=== PATIENT | male | born 1955 | race Caucasian/White ===

== ENCOUNTER 2020-03-27 10:00 | Emergency (ER) | payer MEDICARE, OTHER, SELFPAY ==
--- NOTE | 2020-03-27 10:39 | DI.RAD.S_ITS ---
PROCEDURE: XR RIBS RT MIN 3V W CXR 1V INDICATIONS: possible broken rib TECHNIQUE: 2 views of the right ribs were acquired, along with a single view chest. COMPARISON: None. FINDINGS: Surgical changes and devices: None. Bones and chest wall: Nondisplaced right ninth rib fracture is present. No suspicious bony lesions. Overlying soft tissues appear unremarkable. Lungs and pleura: No pleural effusions or pneumothorax. Lungs appear clear. Mediastinum: Mediastinal contours appear normal. Heart size is normal. IMPRESSION: Nondisplaced right ninth rib fracture. Dictated by: Mode Villalobos M.D. on 03/27/2020 at 12:05 Approved by: Mode Villalobos M.D. on 03/27/2020 at 12:11
[2020-03-27 10:40] VITALS: BP 177/95; PULSE 82; RESP 16; TEMP 36.7; O2SAT 96
[2020-03-27 13:54] VITALS: BP 167/104; PULSE 81; RESP 18; O2SAT 98
--- NOTE | 2020-03-27 14:11 | ED.BACK ---
HPI - Back Pain/Injury <KLAUDIA Spring - Last Filed: 03/27/20 14:15> General Chief Complaint: Back Pain/Injury Stated Complaint: Broke a rib, I think. Right side, hurts in front Time Seen by Provider: 03/27/20 12:52 Source: patient Mode of arrival: Ambulatory Limitations: no limitations History of Present Illness HPI Narrative: The patient is a 65-year-old male nonsmoker who denies pertinent medical history presents with a chief complaint of ?I think I broke a rib.He fell against a car 3 days ago and felt a crack. He states he is becoming increasingly painful. He denies any shortness of breath, but states it hurts to sleep and take a deep breath. He denies any abdominal pain nausea vomiting or diarrhea. He denies any other injuries from this fall into a car. Related Data Previous Rx's Medication Instructions Recorded hydrocodone-acetaminophen [[place]] 1 tab PO Q4-6H PRN #7 tab 03/27/20 Allergies Allergy/AdvReac Type Severity Reaction Status Date / Time codeine Allergy Intermediate Verified 03/23/18 08:28 cat dander Allergy Mild Verified 03/23/18 08:28 Review of Systems <ERICKA Spring - Last Filed: 03/27/20 14:15> Review of Systems Narrative: GENERAL: Denies chills, fatigue, malaise, fever, sweats. HEENT: Denies sinus pain, ear pain, sore throat, difficulty swallowing, dizziness. RESPIRATORY: See HPI CARDIOVASCULAR: Denies chest pain, palpitations, orthopnea, edema, GASTROINTESTINAL: Denies nausea, vomiting, abdominal pain, diarrhea, constipation, melena. : Denies dysuria, frequency, incontinence, hematuria, urinary retention. MUSCULOSKELETAL: denies weakness, joint pain, or bony pain SKIN: Denies rash, skin lesions, or other NEUROLOGIC: Denies weakness, headache, numbness, change in speech, confusion, seizures, incoordination. PSYCHIATRIC: No concerning psychosocial issues. 12 point review of systems is negative except for those stated above Patient History <KLAUDIA Spring - Last Filed: 03/27/20 14:15> Social History Smoking Status: Former smoker Smoking Status: Former smoker alcohol intake frequency: 0-2 drinks per day Substance Use Type: does not use Exam <KARELY Spring-BC - Last Filed: 03/27/20 14:15> Narrative Exam Narrative: GENERAL: This is a well-nourished, well-developed patient, in no acute distress HEAD: Atraumatic. Normocephalic. No temporal or scalp tenderness. EYES: Pupils equal round and reactive. Extraocular motions intact. No scleral icterus. No injection or drainage. ENT: Nose without bleeding, purulent drainage or septal hematoma. Throat without erythema, tonsillar hypertrophy or exudate. Uvula midline. Airway patent. NECK: Trachea midline. No JVD or lymphadenopathy. Supple, nontender, no meningeal signs. CARDIOVASCULAR: Regular rate and rhythm RESPIRATORY: Clear to auscultation. Breath sounds equal bilaterally. No wheezes, rales, or rhonchi. Pain to palpation left side lower chest wall. Pain to anterior posterior chest wall compression as well as lateral chest wall compression. GASTROINTESTINAL: Abdomen soft, non-tender, nondistended. No hepato-splenomegaly, or palpable masses. No guarding. Active bowel sounds all 4 quadrants. EXTREMITIES: No clubbing, cyanosis, or edema. No joint tenderness, effusion, or edema noted. BACK: Nontender without deformity or crepitance. No flank tenderness. NEURO: AOx3. SKIN: No rash or erythema on visible skin. No erythema ecchymosis laceration or abrasion noted on right side of chest wall. Initial Vital Signs Initial Vital Signs: Vital Signs Temperature 98.1 F 03/27/20 10:40 Pulse Rate 82 03/27/20 10:40 Respiratory Rate 16 03/27/20 10:40 Blood Pressure 177/95 H 03/27/20 10:40 Pulse Oximetry 96 03/27/20 10:40 <Viviana Dior DO - Last Filed: 03/30/20 07:49> Initial Vital Signs Initial Vital Signs: Vital Signs Temperature 98.1 F 03/27/20 10:40 Pulse Rate 82 03/27/20 10:40 Respiratory Rate 16 03/27/20 10:40 Blood Pressure 177/95 H 03/27/20 10:40 Pulse Oximetry 96 03/27/20 10:40 Scores <KARELY Spring-BC - Last Filed: 03/27/20 14:15> GCS [place] coma scale eye opening: Spontaneous [place] coma scale verbal response: Orientated [place] coma scale motor response: Obey commands [place] coma scale total score: 15 Course <KLAUDIA Spring - Last Filed: 03/27/20 14:15> Orders Ordered: ED Orders 03/27/20 10:39 XR ribs RT min 3V w CXR1V Stat Vital Signs Vital signs: Vital Signs - 8 hr 03/27/20 10:40 03/27/20 13:54 Temperature 98.1 F Pulse Rate 82 81 Respiratory Rate 16 18 Blood Pressure 177/95 H 167/104 H Pulse Oximetry 96 98 <Viviana Dior DO - Last Filed: 03/30/20 07:49> Orders Ordered: ED Orders 03/27/20 10:39 XR ribs RT min 3V w CXR1V Stat Vital Signs Vital signs: Vital Signs - 8 hr 03/27/20 10:40 03/27/20 13:54 Temperature 98.1 F Pulse Rate 82 81 Respiratory Rate 16 18 Blood Pressure 177/95 H 167/104 H Pulse Oximetry 96 98 MDM - Back Pain/Injury <KLAUDIA Spring - Last Filed: 03/27/20 14:15> Imaging Data Rib x-ray: Radiologist's Impression: [address] [place] [id number] XRay Report Signed Patient: Spenser Arteaga CMR#: [id number] : 3Acct:[id number] Age/Sex: 65 / MDate of Service: 03/27/20 Loc: ED Accession Number: [id number] Procedure: XR ribs RT min 3V w CXR1V Ordering Provider: Viviana Dior D.O. PROCEDURE: XR RIBS RT MIN 3V W CXR 1V INDICATIONS: possible broken rib TECHNIQUE: 2 views of the right ribs were acquired, along with a single view chest. COMPARISON: None. FINDINGS: Surgical changes and devices: None. Bones and chest wall: Nondisplaced right ninth rib fracture is present. No suspicious bony lesions. Overlying soft tissues appear unremarkable. Lungs and pleura: No pleural effusions or pneumothorax. Lungs appear clear. Mediastinum: Mediastinal contours appear normal. Heart size is normal. IMPRESSION: Nondisplaced right ninth rib fracture. Dictated by: Mode Villalobos M.D. on 03/27/2020 at 12:05 Approved by: Mode Villalobos M.D. on 03/27/2020 at 12:11 [facility] Narrative Medical decision making narrative: The patient is a 65-year-old male nonsmoker with history of a fall into a car. He presents with a chief complaint of right pain thinking cracked rib. X-ray correlates with a nondisplaced 9th rib fracture on his right side. He has no abdominal pain lightheadedness or dizziness. He received incentive spirometry teaching as well as teaching regarding a rib fracture in the emergency department. I did give him a prescription of Sherwood for pain as he states he has taken it before and had no negative reactions. I discussed at length following up with primary care provider coming back to the emergency department for any acute concerns. Patient has no questions or concerns upon discharge and states understanding of return precautions as well as follow-up care. Discharge Plan Departure Patient Disposition: Home Clinical Impression: Right rib fracture Qualifiers: Encounter type: initial encounter Rib fracture type: single rib Fracture type: closed Qualified Code(s): S22.31XA - Fracture of one rib, right side, initial encounter for closed fracture Discharge Date/Time: 03/27/20 13:30 Instructions: How to Use an Incentive Spirometer, DI for Rib Fracture Activity Restrictions/Additional Instructions: Thank you for trusting us with your care today. You have a nondisplaced right rib fracture. I have sent a prescription of hydrocodone with Tylenol to [facility] I have given you a prescription of a narcotic for pain. Be aware that this can be constipating and sedating. I encouraged taking with a stool softener, pushing fluids and fiber. Do not take and drive, operate heavy machinery, etc. Do not combine it with any other sedating substances such as alcohol. The combination of narcotics and alcohol and/or other sedatives can be lethal. Please be sure to use the incentive spirometer to help prevent pneumonia. Follow-up with primary care provider in the next few days. Please come back to emergency department for any acute concerns Prescriptions: New hydrocodone-acetaminophen [[place]wood] 5-325 mg tablet 1 tab PO Q4-6H PRN (Reason: pain) Qty: 7 RF: 0 Referrals: Antonino Vela DO [Primary Care Provider] - <Viviana Dior DO - Last Filed: 03/30/20 07:49> Cosign ED Attending Cosignature Attestation: I was immediately available in the department for consultation. Documentation has been reviewed. I agree with assessment and plan.
== END 2020-03-27 13:30 | disposition home or self-care (01) ==
PROVIDERS: Emergency Provider Nurse Practitioner Family; PCP Family Medicine
DX: S22.31XA Fracture of one rib, right side, initial encounter for closed fracture (principal); W18.09XA Striking against other object with subsequent fall, initial encounter
CPT/HCPCS: 71101; 99283

== ENCOUNTER → 2021-01-22 09:22 | Outpatient (CLI) | payer MEDICARE, OTHER, SELFPAY ==
[2021-01-22 10:54] LABS: COVID19 -Nasal RAPID Negative (Negative)
== END ==
PROVIDERS: PCP Family Medicine; Visit Provider Specialist
DX: Z20.822 Contact with and (suspected) exposure to COVID-19 (principal)
CPT/HCPCS: 87635; C9803

== ENCOUNTER → 2021-03-26 09:59 | Outpatient (CLI) | payer MEDICARE, OTHER, SELFPAY ==
[2021-03-26 10:38] LABS: COVID19 -Nasal RAPID Negative (Negative)
== END ==
PROVIDERS: PCP Family Medicine; Visit Provider Specialist
DX: Z20.822 Contact with and (suspected) exposure to COVID-19 (principal)
CPT/HCPCS: 87635; C9803

== ENCOUNTER 2021-03-27 06:35 | Day surgery (SDC) | payer MEDICARE, OTHER, SELFPAY ==
--- NOTE | 2021-03-27 | PATH_ITS ---
[facility] Accession Number: [id number] . 01 Material submitted: . colon - 30CM COLON POLYP . 02 Diagnosis: Colon, Polyp 30 cm, Biopsy: Tubular adenoma. MRV 04/01/2021 1354 Local . 02 Electronically signed: . Shania Peter MD, Pathologist NPI- [id number] . 01 Gross description: . 30CM COLON POLYP: Received in formalin is 1 fragment(s) of gallagher, soft tissue measuring 0.5 x 0.4 x 0.2 cm submitted entirely in 1 cassette(s) /MARIA L 03/28/2021 0651 Local . 02 Pathologist provided ICD-10: D12.6 . 02 CPT . 014051 Performed at: 01 [facility] [address] [place] [address], [place], [place] [id number] MD Ant Caruso MD Phone: [phone] Performed at: [address] [facility] [address] [place], [place] [id number] MD Shania Peter MD Phone: [phone]
[2021-03-27 07:07] VITALS: BMI 12.0
[2021-03-27 07:22] VITALS: BP 146/90; PULSE 81; RESP 16; TEMP 36.7; O2SAT 98
[2021-03-27] MEDS: LACTATED RINGERS 1,000 ML 200 ML IV (07:24)
--- NOTE | 2021-03-27 07:50 | PM.HP.1 ---
History of Present Illness History of Present Illness Date Patient Seen: 03/27/21 Time Patient Seen: 07:41 Chief complaint: DX COLONOSCOPY Narrative: Patient is a gentleman here for screening colonoscopy. Last exam was 10 years ago. He has been having a lot of diarrhea earlier in the year. Patient History Family & Social History Family History Grandfather Heart disease Social History: household members spouse Tobacco & Substance use: Smoking Status Former smoker alcohol intake current alcohol intake frequency 0-2 drinks per day Substance Use Type does not use Meds Home Medications and Allergies Home Medications Medication Instructions Recorded Confirmed Type multivitamin 1 tab PO DAILY 12/18/20 03/27/21 History Allergies Allergy/AdvReac Type Severity Reaction Status Date / Time codeine Allergy Intermediate Verified 03/27/21 07:06 cat dander Allergy Mild Verified 03/27/21 07:06 Review of Systems Review of Systems ROS: Yes All systems reviewed with the patient and are negative except as otherwise documented Exam Vital Signs (past 8 hours): - 03/27/21 07:22 Temperature 98.1 F Pulse Rate 81 Respiratory Rate 16 Blood Pressure 146/90 H Pulse Oximetry 98 Oxygen Delivery Method Room Air Narrative Exam Narrative: Pleasant cooperative patient no apparent distress. Lungs are clear to auscultation. No rales or rhonchi. Heart regular rate and rhythm no murmur gallop. Abdomen is soft nontender without mass. No obvious hernias. Patient is alert and oriented x3. Assessment & Plan Assessment & Plan narrative: The patient for a screening colonoscopy. I have discussed the procedure with them. Risks of bleeding, perforation which would necessitate major operation, failure to find remove all lesions, the potential tattoo were all discussed. All questions were answered. They wished to proceed.
--- NOTE | 2021-03-27 07:55 | PM.PREOP ---
Pre-operative Note COVID-19 COVID-19 status: Negative Result date/Date tested (Pos, Neg/Pending): 03/26/21 Interval Note History & Physical reviewed/Exam performed by Physician: Yes Changes to H&P: No ASA Class (for procedural sedation): I
[2021-03-27] MEDS: ONDANSETRON 4 MG/2 ML INJ IV (08:06)
[2021-03-27] MEDS: MIDAZOLAM 5 MG/5 ML VIAL IV (08:08)
[2021-03-27] MEDS: fentaNYL 250 MCG/5 ML INJ IV (08:13)
--- NOTE | 2021-03-27 08:33 | PM.OP.ENDO ---
Operative Date/Time/Diagnoses Date of procedure: 03/27/21 Time of procedure: 08:33 Pre-op diagnosis: Screening exam. Last colonoscopy 10 years ago. Patient had been having diarrhea but that has completely resolved. Post-op diagnosis: same (Polyp at 30 cm) Procedure & Clinicians Study performed: Colonoscopy with hot snare polypectomy Same procedure as scheduled: Yes Indications: Screening Surgeon: Kenn Contreras Procedure Notes SCOAP/Timeout: Performed Procedure in detail: The patient was placed in the left lateral decubitus position and underwent IV sedation directed by the surgeon consisting of fentanyl and Versed. Digital exam was unremarkable. Prostate was flat.. The scope was inserted and advanced through the rectum into the sigmoid, descending, transverse, and ascending colon. No lesions were seen. The cecum was reached identified by the ileocecal valve and the appendiceal opening. The scope was gradually brought out. One Polyp was found at 30 cm from the anal verge. This was removed completely with a hot snare.. The scope ultimately was retroflexed in the rectum. The appearance was normal. The scope was removed and the patient tolerated the procedure well. Prep was excellent Scope withdrawal time: 9 minutes (13 total) Sedation minutes: 24 Findings: polyp Specimen(s): other (Polyp at 30 cm from the anal verge) Complications: none Post-procedure Recommendations: Colonscopy in 5 years Follow up: as needed Disposition: PACU
[2021-03-27 08:35] VITALS: BP 121/80; PULSE 83; RESP 14; TEMP 36.6; O2SAT 98
[2021-03-27 08:40] VITALS: BP 142/80; BP 143/83; PULSE 72; PULSE 75; RESP 16; O2SAT 97; O2SAT 98
[2021-03-27 08:45] VITALS: BP 131/85; PULSE 73; RESP 16; O2SAT 96
[2021-03-27 08:52] VITALS: BP 131/85; PULSE 65; RESP 16; O2SAT 96
[2021-03-27 09:10] VITALS: BP 156/92; PULSE 74; RESP 18; TEMP 36.6; O2SAT 98
== END 2021-03-27 09:25 | disposition home or self-care (01) ==
PROVIDERS: PCP Family Medicine; Referring Provider Specialist; Visit Provider Specialist
PROC: 0DJD8ZZ Inspection of Lower Intestinal Tract, Via Natural or Artificial Opening Endoscopic (ICD-10-PCS; CPT 45378; principal; 2021-03-27 07:45)
DX: Z12.11 Encounter for screening for malignant neoplasm of colon (principal); D12.6 Benign neoplasm of colon, unspecified
CPT/HCPCS: 45385; 99152; J2250; J2405; J3010

== ENCOUNTER → 2023-05-07 08:12 | Outpatient (CLI) | payer MEDICARE, OTHER, SELFPAY ==
[2023-05-07 09:18] LABS: Add Manual Diff / Slide Review NO; Basophils Absolute Auto 0 /uL (0-100); Basophils Percent Auto 0.7 % (0-2); Eosinophils Absolute Auto 100 /uL (0-450); Eosinophils Percent Auto 2.4 % (2-4); Hematocrit 42.1 % (41-53); Hemoglobin 14.4 g/dL (13.5-17.5); Lymphocytes Absolute Auto 1800 /uL (1100-4500); Lymphocytes Percent Auto 31.4 % (25-40); Mean Corpuscular HGB Conc 34.3 % (30-36); Mean Corpuscular Hemoglobin 32.3 PG (26-34); Mean Corpuscular Volume 94.2 fL (80-100); Monocytes Absolute Auto 600 /uL (0-900); Monocytes Percent Auto 11.5 % (3-14); Neutrophils Absolute Auto 3000 /uL (1500-7000); Platelet Count 243 X10^3/uL (150-400); Red Blood Cell Count 4.47 X10^6/uL (4.5-5.9); Red Cell Distribution Width 12.6 % (11.6-14.8); White Blood Cell Count 5.6 X10^3/uL (4.5-11.0)
[2023-05-07 09:43] LABS: Alanine Aminotransferase 28 IU/L (<50); Albumin 4.2 g/dL (3.5-5.0); Albumin Globulin Ratio 1.6 (1.0-2.8); Alkaline Phosphatase 84 U/L (38-126); Aspartate Aminotransferase 28 IU/L (17-59); Bilirubin Total 0.6 mg/dL (0.2-1.3); Blood Urea Nitrogen 19 mg/dL (9-20); Calcium 9.4 mg/dL (8.4-10.2); Carbon Dioxide 25 mmol/L (22-32); Chloride 105 mmol/L (98-107); Cholesterol 190 mg/dL (140-199); Estimated Glomerular Filt Rate > 60 mL/min (>60); Globulin 2.6 g/dL (1.7-4.1); Glucose 105 mg/dL (80-110); HDL Cholesterol 49 mg/dL (40-60); HEMOLYSIS < 15 (0-50); LDL Cholesterol Calculated 128 mg/dL (<100); Potassium 4.3 mmol/L (3.4-5.1); Sodium 137 mmol/L (137-145); Total Protein 6.8 g/dL (6.3-8.2); Triglycerides 66 mg/dL (35-150)
[2023-05-07 10:11] LABS: Prostate Specific Antigen 2.29 ng/mL (0.10-4.00)
== END ==
PROVIDERS: PCP Family Medicine; Referring Provider Family Medicine; Visit Provider Family Medicine
DX: Z00.00 Encounter for general adult medical examination without abnormal findings (principal); R35.0 Frequency of micturition; R35.1 Nocturia
CPT/HCPCS: 36415; 80053; 80061; 84153; 85025

== ENCOUNTER → 2023-05-10 09:59 | Outpatient (CLI) | payer MEDICARE, OTHER, SELFPAY ==
--- NOTE | 2023-05-10 10:00 | DI.RAD.S_ITS ---
PROCEDURE: XR SHOULDER LT MIN 2V INDICATIONS: bilateral shoulder pain TECHNIQUE: 3 views of the shoulder were acquired. COMPARISON: None. FINDINGS: Bones: No fractures or dislocations. No suspicious bony lesions. Visualized ribs appear intact. Glenohumeral and acromioclavicular joint space narrowing with associated osteophytosis. Soft tissues: No suspicious soft tissue calcifications. IMPRESSION: Moderate glenohumeral osteoarthritis. Dictated by: Pérez Hilton M.D. on 05/10/2023 at 14:07 Approved by: Pérez Hilton M.D. on 05/10/2023 at 14:07
--- NOTE | 2023-05-10 10:00 | DI.RAD.S_ITS ---
PROCEDURE: XR SHOULDER RT MIN 2V INDICATIONS: bilateral shoulder pain TECHNIQUE: 3 views of the shoulder were acquired. COMPARISON: None. FINDINGS: Bones: No fractures or dislocations. No suspicious bony lesions. Visualized ribs appear intact. Glenohumeral and acromioclavicular joint space narrowing with associated osteophytosis. Soft tissues: No suspicious soft tissue calcifications. IMPRESSION: Moderate glenohumeral osteoarthritis. Dictated by: Pérez Hiltno M.D. on 05/10/2023 at 14:07 Approved by: Pérez Hilton M.D. on 05/10/2023 at 14:07
== END ==
PROVIDERS: PCP Family Medicine; Referring Provider Family Medicine; Visit Provider Family Medicine
DX: M19.011 Primary osteoarthritis, right shoulder (principal); M19.012 Primary osteoarthritis, left shoulder; M25.511 Pain in right shoulder; M25.512 Pain in left shoulder
CPT/HCPCS: 73030

== ENCOUNTER 2023-10-19 08:15 | Outpatient (RCR) | payer MEDICARE, OTHER, SELFPAY ==
--- NOTE | 2023-06-08 10:43 | PT.OIE ---
Current Diagnoses Pain in right shoulder (06/08/23) Pain in left shoulder (06/08/23) Past Medical History (Last Updated 01/13/23 @ 13:23 by Ant George MD) ADD (attention deficit disorder) Bilateral shoulder pain Visit Care Team Role Provider Type Ant George MD Attending Provider Physician Family Provider Primary Care Provider Referring Provider Specialty: Family Practice Address: [address] [place] [address] Email: [email or web address] Initial Evaluation PT-OP-A Visit Information Start: 06/08/23 08:25 Freq: Status: Active Protocol: Document 06/08/23 08:26 AB (Rec: 06/08/23 10:43 AB [id number]) Out-Patient Physical Therapy Visit Information Visit Information Visit Type Initial Evaluation Visit Start Time 08:30 Visit Stop Time 09:20 Total Visit Minutes 50 Visit Number 1 Number of [employer]IST Visits 0 Evaluation Information Evaluation Date 06/08/23 PT-OP-B Current Condition Start: 06/08/23 08:25 Freq: Status: Active Protocol: Document 06/08/23 08:26 AB (Rec: 06/08/23 10:43 AB [id number]) Current Condition History of Current Condition Onset Date Chronic History of Current Condition The pt reports that since COVID, he has been having increasing bilateral shoulder pain (L>R), as well as mobility deficits (L>R). He is able to push through the pain for almost all of his recreational activities, but has trouble getting to sleep and has pain that wakes him up . He reports a 4/10 pain at worst with agg activities ( reaching across his body), 0/ 10 at best. Prior Treatments and Tests Has tried some exercises. Xrays: narrowing space and OA Future Testing and Treatments Planned Will possibly get injections Treatment Goals Patient/Caregiver Goals To return to lifting weights Current Functional Impairments (Reported) Functional Limitations- Recreation/ Participates in hiking, Hobbies kayaking but pushes through the pain. Unable to weight lift currently. PT-OP-C Subjective Start: 06/08/23 08:25 Freq: Status: Active Protocol: Document 06/08/23 08:26 AB (Rec: 06/08/23 10:43 AB [id number]) OP-PT Subjective Patient Comments Patient Comments See hx of current condition Patient Questionnaires Quick Dash- Upper Extremity Quick Dash UE Score 13.63% Quick Dash UE Impairment 1 to 19% Impaired (Score 1-19) PT-OP-J Posture/Palpation/Skin Start: 06/08/23 08:25 Freq: Status: Active Protocol: Document 06/08/23 08:26 AB (Rec: 06/08/23 10:43 AB [id number]) Posture Evaluation Position Sitting Evaluation View Lateral T-Spine Posture Increased Kyphosis PT-OP-K Range of Motion Start: 06/08/23 08:25 Freq: Status: Active Protocol: Document 06/08/23 08:26 AB (Rec: 06/08/23 10:43 AB [id number]) Shoulder Goniometric Range of Motion Shoulder Right Active Shoulder ROM WFL Yes Testing Position Sitting Flexion 118 Abduction 149 External Rotation at 0 degrees Abduction 60 Internal Rotation Behind Back (text) T3 Comments Functional ER: L1 Mild pain (1/10) with all motions, begins to compensate with UT for shoulder flexion and ABD Left Active Shoulder ROM WFL No Testing Position Sitting Flexion 93 Abduction 97 External Rotation at 0 degrees Abduction 42 Internal Rotation Behind Back (text) C5 Comments Functional ER: L4 Pain (4/10) with all motions, begins to compensate with UT for shoulder flexion and ABD PT-OP-M Strength Start: 06/08/23 08:25 Freq: Status: Active Protocol: Document 06/08/23 08:26 AB (Rec: 06/08/23 10:43 AB [id number]) Shoulder Strength Shoulder Manual Muscle Testing Right Flexion 5 Normal Extension 5 Normal Abduction (C5) 4+ Good+ Internal Rotation 4+ Good+ Horizontal Abduction 4+ Good+ Comments Denies pain Left Flexion 5 Normal Extension 5 Normal Abduction (C5) 4+ Good+ External Rotation 4+ Good+ Internal Rotation 4+ Good+ Comments Denies pain Elbow/Forearm Strength Elbow and Forearm Manual Muscle Testing Right Flexion (C6) 5 Normal Extension (C7) 5 Normal Left Flexion (C6) 5 Normal Extension (C7) 5 Normal PT-OP-Q Treatments Start: 06/08/23 08:25 Freq: Status: Active Protocol: Document 06/08/23 08:26 AB (Rec: 06/08/23 10:43 AB [id number]) Therapeutic Exercises Supine Exercises Cane shldr flexion AAROM Side bilateral Equipment Used Cane/dowel Reps/Minutes 3x10 sec hold Standing Exercises IR strap stretch Side bilateral Reps/Minutes 2x10 sec hold ea Cane shldr ER AAROM Side bilateral Reps/Minutes 2x10 sec hold ea Cane shldr ABD AAROM Side bilateral Reps/Minutes 2x10 sec hold ea Comments cues to retract shoulder blades for better GH jt positioning PT-OP-T Assessment and Plan Start: 06/08/23 08:25 Freq: Status: Active Protocol: Document 06/08/23 08:26 AB (Rec: 06/08/23 10:43 AB [id number]) Physical Therapy Assessment Rehab Potential Rehabilitation Potential Good Evaluation Complexity Number of Personal Factors/Comorbidities 1-2 Number of Body Systems Impaired 1-2 Clinical Presentation at Evaluation Stable Impairments Impairments Pain,Posture,ROM,Soft Tissue Mobility,Strength Goals Six Impairment Strength Short Term Goal (STG) Pt's gross BUE MMT scores to improve to 5/5 to show improving strength to improve ability to perform ADLs and IADLs. STG Duration 4 Grades 9 Thru 12 Visiting Teacher Goal (LTG) Pt to report being able to return to weight lifting with minimal to no pain to show improving strength to return to recreational activities. LTG Duration 8 Five Short Term Goal (STG) Pt's left shoulder functional IR AROM to improve to L1 or better and right shoulder functional IR AROM to improve to T10 or better to show improving ROM to improve ability to perform ADLs and IADLs. STG Duration 4 Grades 9 Thru 12 Visiting Teacher Goal (LTG) Pt's left shoulder functional IR AROM to improve to T10 or better and right shoulder functional IR AROM to improve to T8 or better to show improving ROM to improve ability to perform ADLs and IADLs. LTG Duration 8 Four Impairment Shoulder AROM deficits Short Term Goal (STG) Pt's left shoulder functional ER AROM to improve to C7 or better to show improving ROM to improve ability to perform ADLs and IADLs. STG Duration 4 Fdc Goal (LTG) Pt's left shoulder functional ER AROM to improve to T3 or better to show improving ROM to improve ability to perform ADLs and IADLs. LTG Duration 8 Three Impairment Shoulder AROM deficits Short Term Goal (STG) Pt's right shoulder ER AROM to improve to 65 degrees or better and left shoulder ER AROM to improve to 55 degrees or better to show improving ROM to improve ability to perform ADLs and IADLs. STG Duration 4 Grades 9 Thru 12 Visiting Teacher Goal (LTG) Pt's left shoulder ER AROM to improve to 65 degrees or better to show improving ROM to improve ability to perform ADLs and IADLs. LTG Duration 8 Two Impairment Shoulder AROM deficits Short Term Goal (STG) Pt's right shoulder ABD AROM to improve to 160 degrees or better and left shoulder ABD AROM to improve to 110 degrees or better to show improving ROM to improve ability to perform ADLs and IADLs. STG Duration 4 Fdc Goal (LTG) Pt's right shoulder ABD AROM to improve to 170 degrees or better and left shoulder ABD AROM to improve to 130 degrees or better to show improving ROM to improve ability to perform ADLs and IADLs. LTG Duration 8 One Impairment Shoulder AROM deficits Short Term Goal (STG) Pt's right shoulder flexion AROM to improve to 130 degrees or better and left shoulder flexion AROM to improve to 110 degrees or better to show improving ROM to improve ability to perform ADLs and IADLs. STG Duration 4 Grades 9 Thru 12 Visiting Teacher Goal (LTG) Pt's right shoulder flexion AROM to improve to 150 degrees or better and left shoulder flexion AROM to improve to 130 degrees or better to show improving ROM to improve ability to perform ADLs and IADLs. LTG Duration 8 Assessment Summary Assessment Regino Arteaga is a 68 year old male patient who presents to outpatient PT clinic with complaints of chronic bilateral shoulder pain and mobility deficits (L>R) due to OA which has caused narrowing GH and AC joint space. Today' s PT examination revealed bilateral UE AROM deficits (L> R), mild muscular weakness, pain that was reproduced with AROM testing, abnormal UE biomechanics, and postural abnormalities. These are all contributing to the pt's symptom presentation and current impairments. Based on today's findings, the pt would benefit from skilled PT to improve these deficits in order to reduce his symptoms and return to his PLOF, including his recreational activities. The pt's rehab potential is good based on his active lifestyle and motivation to participate in therapy. Physical Therapy Plan Frequency and Duration Frequency of Treatment 2x/Week Duration of treatment (weeks) 8 Plan of Care Start Date 06/08/23 Plan of Care End Date 08/03/23 Therapeutic Interventions Therapeutic Interventions Home Exercise Program,Joint Mobilizations,Manual Therapy, Neuromuscular Re-education, Patient/Caregiver Education, Self-Care/Home Management,Soft Tissue Mobilization,Taping, Therapeutic Activities, Therapeutic Exercises Modalities Cold Pack/Ice Massage,Electric Stimulation,Hot Packs Next Visit Focus/Plan Next Note Type Treatment Note Next Visit Plan Review HEP. Add BUE mobility exercises and low level periscapular and RTC strengthening to improve biomechanics and posture.
--- NOTE | 2023-06-08 10:44 | PT.OPPOC ---
Physical, Occupational & Speech Therapy At [facility] Current Diagnoses Pain in right shoulder (06/08/23) Pain in left shoulder (06/08/23) Visit Care Team Role Provider Type Ant George MD Attending Provider Physician Family Provider Primary Care Provider Referring Provider Specialty: Family Practice Address: [address] [place] [address] Email: [email or web address] Plan Of Care PT-OP-T Assessment and Plan Start: 06/08/23 08:25 Freq: Status: Active Protocol: Document 06/08/23 08:26 AB (Rec: 06/08/23 10:43 AB [id number]) Physical Therapy Assessment Rehab Potential Rehabilitation Potential Good Evaluation Complexity Number of Personal Factors/Comorbidities 1-2 Number of Body Systems Impaired 1-2 Clinical Presentation at Evaluation Stable Impairments Impairments Pain,Posture,ROM,Soft Tissue Mobility,Strength Goals Six Impairment Strength Short Term Goal (STG) Pt's gross BUE MMT scores to improve to 5/5 to show improving strength to improve ability to perform ADLs and IADLs. STG Duration 4 Forms Builder Goal (LTG) Pt to report being able to return to weight lifting with minimal to no pain to show improving strength to return to recreational activities. LTG Duration 8 Five Short Term Goal (STG) Pt's left shoulder functional IR AROM to improve to L1 or better and right shoulder functional IR AROM to improve to T10 or better to show improving ROM to improve ability to perform ADLs and IADLs. STG Duration 4 Residential Goal (LTG) Pt's left shoulder functional IR AROM to improve to T10 or better and right shoulder functional IR AROM to improve to T8 or better to show improving ROM to improve ability to perform ADLs and IADLs. LTG Duration 8 Four Impairment Shoulder AROM deficits Short Term Goal (STG) Pt's left shoulder functional ER AROM to improve to C7 or better to show improving ROM to improve ability to perform ADLs and IADLs. STG Duration 4 Forms Builder Goal (LTG) Pt's left shoulder functional ER AROM to improve to T3 or better to show improving ROM to improve ability to perform ADLs and IADLs. LTG Duration 8 Three Impairment Shoulder AROM deficits Short Term Goal (STG) Pt's right shoulder ER AROM to improve to 65 degrees or better and left shoulder ER AROM to improve to 55 degrees or better to show improving ROM to improve ability to perform ADLs and IADLs. STG Duration 4 Forms Builder Goal (LTG) Pt's left shoulder ER AROM to improve to 65 degrees or better to show improving ROM to improve ability to perform ADLs and IADLs. LTG Duration 8 Two Impairment Shoulder AROM deficits Short Term Goal (STG) Pt's right shoulder ABD AROM to improve to 160 degrees or better and left shoulder ABD AROM to improve to 110 degrees or better to show improving ROM to improve ability to perform ADLs and IADLs. STG Duration 4 Forms Builder Goal (LTG) Pt's right shoulder ABD AROM to improve to 170 degrees or better and left shoulder ABD AROM to improve to 130 degrees or better to show improving ROM to improve ability to perform ADLs and IADLs. LTG Duration 8 One Impairment Shoulder AROM deficits Short Term Goal (STG) Pt's right shoulder flexion AROM to improve to 130 degrees or better and left shoulder flexion AROM to improve to 110 degrees or better to show improving ROM to improve ability to perform ADLs and IADLs. STG Duration 4 Residential Goal (LTG) Pt's right shoulder flexion AROM to improve to 150 degrees or better and left shoulder flexion AROM to improve to 130 degrees or better to show improving ROM to improve ability to perform ADLs and IADLs. LTG Duration 8 Assessment Summary Assessment Regino Arteaga is a 68 year old male patient who presents to outpatient PT clinic with complaints of chronic bilateral shoulder pain and mobility deficits (L>R) due to OA which has caused narrowing GH and AC joint space. Today' s PT examination revealed bilateral UE AROM deficits (L> R), mild muscular weakness, pain that was reproduced with AROM testing, abnormal UE biomechanics, and postural abnormalities. These are all contributing to the pt's symptom presentation and current impairments. Based on today's findings, the pt would benefit from skilled PT to improve these deficits in order to reduce his symptoms and return to his PLOF, including his recreational activities. The pt's rehab potential is good based on his active lifestyle and motivation to participate in therapy. Physical Therapy Plan Frequency and Duration Frequency of Treatment 2x/Week Duration of treatment (weeks) 8 Plan of Care Start Date 06/08/23 Plan of Care End Date 08/03/23 Therapeutic Interventions Therapeutic Interventions Home Exercise Program,Joint Mobilizations,Manual Therapy, Neuromuscular Re-education, Patient/Caregiver Education, Self-Care/Home Management,Soft Tissue Mobilization,Taping, Therapeutic Activities, Therapeutic Exercises Modalities Cold Pack/Ice Massage,Electric Stimulation,Hot Packs Next Visit Focus/Plan Next Note Type Treatment Note Next Visit Plan Review HEP. Add BUE mobility exercises and low level periscapular and RTC strengthening to improve biomechanics and posture. Plan of Care Dates Plan of Care Start Date 06/08/23 Plan of Care End Date 08/03/23 Electronically Signed by: Giorgio Jenkins, PT 06/08/23 1044 If you are in agreement with this Plan of Care, please return a signed and dated copy. I have reviewed this Plan of Care and certify that the skilled therapy services above are required to meet the patient?s needs. Physician Signature Date Printed Name and Credentials Clinical Instructor Signature Printed Name and Credentials
--- NOTE | 2023-06-13 09:48 | PT.OTN ---
Current Diagnoses Pain in right shoulder (06/13/23) Pain in left shoulder (06/13/23) Physical Therapy Treatment Note PT-OP-A Visit Information Start: 06/08/23 08:25 Freq: Status: Active Protocol: Document 06/13/23 08:34 AB (Rec: 06/13/23 09:48 AB [id number]) Out-Patient Physical Therapy Visit Information Visit Information Visit Type Treatment Note Visit Start Time 08:30 Visit Stop Time 09:17 Total Visit Minutes 47 Visit Number 2 Number of REAMING PRESS OPERATOR Visits 0 PT-OP-B Current Condition Start: 06/08/23 08:25 Freq: Status: Active Protocol: Document 06/08/23 08:26 AB (Rec: 06/08/23 10:43 AB [id number]) Current Condition History of Current Condition Onset Date Chronic History of Current Condition The pt reports that since COVID, he has been having increasing bilateral shoulder pain (L>R), as well as mobility deficits (L>R). He is able to push through the pain for almost all of his recreational activities, but has trouble getting to sleep and has pain that wakes him up . He reports a 4/10 pain at worst with agg activities ( reaching across his body), 0/ 10 at best. Prior Treatments and Tests Has tried some exercises. Xrays: narrowing space and OA Future Testing and Treatments Planned Will possibly get injections Treatment Goals Patient/Caregiver Goals To return to lifting weights Current Functional Impairments (Reported) Functional Limitations- Recreation/ Participates in hiking, Hobbies kayaking but pushes through the pain. Unable to weight lift currently. PT-OP-C Subjective Start: 06/08/23 08:25 Freq: Status: Active Protocol: Document 06/13/23 08:34 AB (Rec: 06/13/23 09:48 AB [id number]) OP-PT Subjective Patient Comments Patient Comments The pt reports he was able to perform his HEP once last week due to a busy week, but reported improvement in mobility. Patient Reported Progress Improving PT-OP-J Posture/Palpation/Skin Start: 06/08/23 08:25 Freq: Status: Active Protocol: Document 06/08/23 08:26 AB (Rec: 06/08/23 10:43 AB [id number]) Posture Evaluation Position Sitting Evaluation View Lateral T-Spine Posture Increased Kyphosis PT-OP-K Range of Motion Start: 06/08/23 08:25 Freq: Status: Active Protocol: Document 06/08/23 08:26 AB (Rec: 06/08/23 10:43 AB [id number]) Shoulder Goniometric Range of Motion Shoulder Right Active Shoulder ROM WFL Yes Testing Position Sitting Flexion 118 Abduction 149 External Rotation at 0 degrees Abduction 60 Internal Rotation Behind Back (text) T3 Comments Functional ER: L1 Mild pain (1/10) with all motions, begins to compensate with UT for shoulder flexion and ABD Left Active Shoulder ROM WFL No Testing Position Sitting Flexion 93 Abduction 97 External Rotation at 0 degrees Abduction 42 Internal Rotation Behind Back (text) C5 Comments Functional ER: L4 Pain (4/10) with all motions, begins to compensate with UT for shoulder flexion and ABD PT-OP-M Strength Start: 06/08/23 08:25 Freq: Status: Active Protocol: Document 06/08/23 08:26 AB (Rec: 06/08/23 10:43 AB [id number]) Shoulder Strength Shoulder Manual Muscle Testing Right Flexion 5 Normal Extension 5 Normal Abduction (C5) 4+ Good+ Internal Rotation 4+ Good+ Horizontal Abduction 4+ Good+ Comments Denies pain Left Flexion 5 Normal Extension 5 Normal Abduction (C5) 4+ Good+ External Rotation 4+ Good+ Internal Rotation 4+ Good+ Comments Denies pain Elbow/Forearm Strength Elbow and Forearm Manual Muscle Testing Right Flexion (C6) 5 Normal Extension (C7) 5 Normal Left Flexion (C6) 5 Normal Extension (C7) 5 Normal PT-OP-Q Treatments Start: 06/08/23 08:25 Freq: Status: Active Protocol: Document 06/13/23 08:34 AB (Rec: 06/13/23 09:48 AB [id number]) Cardio Equipment Upper Body Ergometer (UBE) Duration (Minutes) 5 Other 2.5 fwd, 2.5 bwd Therapeutic Exercises Supine Exercises Cane shldr flexion AAROM Side bilateral Equipment Used Cane/dowel Reps/Minutes 10x10 sec hold Sitting Exercises shldr ER Side left Equipment Used Stool, table Reps/Minutes 5x10 sec hold Shldr ABD Side left Equipment Used stool, table Reps/Minutes 5x10 sec hold Shldr flex Side bilateral Equipment Used stool, table Reps/Minutes 5x10 sec hold Standing Exercises IR strap stretch Side bilateral Reps/Minutes 10x10 sec hold ea Cane shldr ER AAROM Side bilateral Reps/Minutes 10x10 sec hold ea Cane shldr ABD AAROM Side bilateral Reps/Minutes 10x10 sec hold ea Comments cues to retract shoulder blades for better GH jt positioning PT-OP-T Assessment and Plan Start: 06/08/23 08:25 Freq: Status: Active Protocol: Document 06/13/23 08:34 AB (Rec: 06/13/23 09:48 AB [id number]) Physical Therapy Assessment Goals Six Impairment Strength Short Term Goal (STG) Pt's gross BUE MMT scores to improve to 5/5 to show improving strength to improve ability to perform ADLs and IADLs. STG Duration 4 Machine Maintenance Goal (LTG) Pt to report being able to return to weight lifting with minimal to no pain to show improving strength to return to recreational activities. LTG Duration 8 Five Short Term Goal (STG) Pt's left shoulder functional IR AROM to improve to L1 or better and right shoulder functional IR AROM to improve to T10 or better to show improving ROM to improve ability to perform ADLs and IADLs. STG Duration 4 Machine Maintenance Goal (LTG) Pt's left shoulder functional IR AROM to improve to T10 or better and right shoulder functional IR AROM to improve to T8 or better to show improving ROM to improve ability to perform ADLs and IADLs. LTG Duration 8 Four Impairment Shoulder AROM deficits Short Term Goal (STG) Pt's left shoulder functional ER AROM to improve to C7 or better to show improving ROM to improve ability to perform ADLs and IADLs. STG Duration 4 Machine Maintenance Goal (LTG) Pt's left shoulder functional ER AROM to improve to T3 or better to show improving ROM to improve ability to perform ADLs and IADLs. LTG Duration 8 Three Impairment Shoulder AROM deficits Short Term Goal (STG) Pt's right shoulder ER AROM to improve to 65 degrees or better and left shoulder ER AROM to improve to 55 degrees or better to show improving ROM to improve ability to perform ADLs and IADLs. STG Duration 4 Detention Goal (LTG) Pt's left shoulder ER AROM to improve to 65 degrees or better to show improving ROM to improve ability to perform ADLs and IADLs. LTG Duration 8 Two Impairment Shoulder AROM deficits Short Term Goal (STG) Pt's right shoulder ABD AROM to improve to 160 degrees or better and left shoulder ABD AROM to improve to 110 degrees or better to show improving ROM to improve ability to perform ADLs and IADLs. STG Duration 4 Detention Goal (LTG) Pt's right shoulder ABD AROM to improve to 170 degrees or better and left shoulder ABD AROM to improve to 130 degrees or better to show improving ROM to improve ability to perform ADLs and IADLs. LTG Duration 8 One Impairment Shoulder AROM deficits Short Term Goal (STG) Pt's right shoulder flexion AROM to improve to 130 degrees or better and left shoulder flexion AROM to improve to 110 degrees or better to show improving ROM to improve ability to perform ADLs and IADLs. STG Duration 4 Detention Goal (LTG) Pt's right shoulder flexion AROM to improve to 150 degrees or better and left shoulder flexion AROM to improve to 130 degrees or better to show improving ROM to improve ability to perform ADLs and IADLs. LTG Duration 8 Assessment Summary Assessment The pt demonstrates good recall of HEP, but continues to require verbal cues for scapular retraction in order to improve GH and scapulothoracic mechanics with UE elevation. Additional table slides were added in order to improve the pt's shoulder AROM deficits, however his is limited by his significant thoracic kyphosis. Therefore, thoracic mobility exercises should be added to improve the pt's symptoms. Physical Therapy Plan Frequency and Duration Frequency of Treatment 2x/Week Duration of treatment (weeks) 8 Plan of Care Start Date 06/08/23 Plan of Care End Date 08/03/23 Therapeutic Interventions Therapeutic Interventions Home Exercise Program,Joint Mobilizations,Manual Therapy, Neuromuscular Re-education, Patient/Caregiver Education, Self-Care/Home Management,Soft Tissue Mobilization,Taping, Therapeutic Activities, Therapeutic Exercises Modalities Cold Pack/Ice Massage,Electric Stimulation,Hot Packs Next Visit Focus/Plan Next Note Type Treatment Note Next Visit Plan Add thoracic and BUE mobility exercises and low level periscapular and RTC strengthening to improve biomechanics and posture.
--- NOTE | 2023-06-16 10:51 | PT.OTN ---
Current Diagnoses Pain in right shoulder (06/16/23) Pain in left shoulder (06/16/23) Physical Therapy Treatment Note PT-OP-A Visit Information Start: 06/08/23 08:25 Freq: Status: Active Protocol: Document 06/16/23 09:10 SW (Rec: 06/16/23 10:50 SW [id number]) Out-Patient Physical Therapy Visit Information Visit Information Visit Type Treatment Note Visit Start Time 09:15 Visit Stop Time 10:00 Total Visit Minutes 45 Visit Number 3 Number of CONSERVATION COORDINATOR Visits 1 PT-OP-B Current Condition Start: 06/08/23 08:25 Freq: Status: Active Protocol: Document 06/08/23 08:26 AB (Rec: 06/08/23 10:43 AB [id number]) Current Condition History of Current Condition Onset Date Chronic History of Current Condition The pt reports that since COVID, he has been having increasing bilateral shoulder pain (L>R), as well as mobility deficits (L>R). He is able to push through the pain for almost all of his recreational activities, but has trouble getting to sleep and has pain that wakes him up . He reports a 4/10 pain at worst with agg activities ( reaching across his body), 0/ 10 at best. Prior Treatments and Tests Has tried some exercises. Xrays: narrowing space and OA Future Testing and Treatments Planned Will possibly get injections Treatment Goals Patient/Caregiver Goals To return to lifting weights Current Functional Impairments (Reported) Functional Limitations- Recreation/ Participates in hiking, Hobbies kayaking but pushes through the pain. Unable to weight lift currently. PT-OP-C Subjective Start: 06/08/23 08:25 Freq: Status: Active Protocol: Document 06/16/23 09:10 SW (Rec: 06/16/23 10:50 [id number]) OP-PT Subjective Patient Comments Patient Comments Pt reports pain with HEP exercises, has questions for PT. Concerned about bone spurs . PT-OP-J Posture/Palpation/Skin Start: 06/08/23 08:25 Freq: Status: Active Protocol: Document 06/08/23 08:26 AB (Rec: 06/08/23 10:43 AB [id number]) Posture Evaluation Position Sitting Evaluation View Lateral T-Spine Posture Increased Kyphosis PT-OP-K Range of Motion Start: 09/06/23 08:25 Freq: Status: Active Protocol: Document 06/08/23 08:26 AB (Rec: 06/08/23 10:43 AB [id number]) Shoulder Goniometric Range of Motion Shoulder Right Active Shoulder ROM WFL Yes Testing Position Sitting Flexion 118 Abduction 149 External Rotation at 0 degrees Abduction 60 Internal Rotation Behind Back (text) T3 Comments Functional ER: L1 Mild pain (1/10) with all motions, begins to compensate with UT for shoulder flexion and ABD Left Active Shoulder ROM WFL No Testing Position Sitting Flexion 93 Abduction 97 External Rotation at 0 degrees Abduction 42 Internal Rotation Behind Back (text) C5 Comments Functional ER: L4 Pain (4/10) with all motions, begins to compensate with UT for shoulder flexion and ABD PT-OP-M Strength Start: 06/08/23 08:25 Freq: Status: Active Protocol: Document 06/08/23 08:26 AB (Rec: 06/08/23 10:43 AB [id number]) Shoulder Strength Shoulder Manual Muscle Testing Right Flexion 5 Normal Extension 5 Normal Abduction (C5) 4+ Good+ Internal Rotation 4+ Good+ Horizontal Abduction 4+ Good+ Comments Denies pain Left Flexion 5 Normal Extension 5 Normal Abduction (C5) 4+ Good+ External Rotation 4+ Good+ Internal Rotation 4+ Good+ Comments Denies pain Elbow/Forearm Strength Elbow and Forearm Manual Muscle Testing Right Flexion (C6) 5 Normal Extension (C7) 5 Normal Left Flexion (C6) 5 Normal Extension (C7) 5 Normal PT-OP-Q Treatments Start: 06/08/23 08:25 Freq: Status: Active Protocol: Document 06/16/23 09:10 SW (Rec: 06/16/23 10:50 SW [id number]) Cardio Equipment Upper Body Ergometer (UBE) Duration (Minutes) 5 Other 2.5 fwd, 2.5 bwd Therapeutic Exercises Sitting Exercises IR Sitting Exercise Name Shoulder IR Isometric>RROM Side bilateral Resistance [place] TB ER Sitting Exercise Name Shoulder ER Isometric>pull aparts Side bilateral Resistance [place] TB Rows Resistance Deuel TB Reps/Minutes 3 x 10 Scapular Retraction Side bilateral Reps/Minutes 10 x 3 hold Standing Exercises Cane shldr ER AAROM Side bilateral Reps/Minutes 10x10 sec hold ea Cane shldr ABD AAROM Side bilateral Reps/Minutes 10x10 sec hold ea Comments cues to retract shoulder blades for better GH jt positioning Manual Therapy Treatment Soft Tissue Mobilization L Shoulder Body Location [place], UT, LS, SCM, periscapular Mobilization Type Myofascial Release,Rolling, Sustained Pressure,Trigger Point Release Intensity/Depth Moderate Body Position Supine Comments Deep Prep Cream Self-Care/Home Management Treatment Education Patient Education Home Exercise Program,Pain Management,Posture PT-OP-T Assessment and Plan Start: 06/08/23 08:25 Freq: Status: Active Protocol: Document 06/16/23 09:10 SW (Rec: 06/16/23 10:50 [id number]) Physical Therapy Assessment Goals Six Impairment Strength Short Term Goal (STG) Pt's gross BUE MMT scores to improve to 5/5 to show improving strength to improve ability to perform ADLs and IADLs. STG Duration 4 Freezer Tunnel Operator Goal (LTG) Pt to report being able to return to weight lifting with minimal to no pain to show improving strength to return to recreational activities. LTG Duration 8 Five Short Term Goal (STG) Pt's left shoulder functional IR AROM to improve to L1 or better and right shoulder functional IR AROM to improve to T10 or better to show improving ROM to improve ability to perform ADLs and IADLs. STG Duration 4 Freezer Tunnel Operator Goal (LTG) Pt's left shoulder functional IR AROM to improve to T10 or better and right shoulder functional IR AROM to improve to T8 or better to show improving ROM to improve ability to perform ADLs and IADLs. LTG Duration 8 Four Impairment Shoulder AROM deficits Short Term Goal (STG) Pt's left shoulder functional ER AROM to improve to C7 or better to show improving ROM to improve ability to perform ADLs and IADLs. STG Duration 4 Freezer Tunnel Operator Goal (LTG) Pt's left shoulder functional ER AROM to improve to T3 or better to show improving ROM to improve ability to perform ADLs and IADLs. LTG Duration 8 Three Impairment Shoulder AROM deficits Short Term Goal (STG) Pt's right shoulder ER AROM to improve to 65 degrees or better and left shoulder ER AROM to improve to 55 degrees or better to show improving ROM to improve ability to perform ADLs and IADLs. STG Duration 4 Penitentiary Goal (LTG) Pt's left shoulder ER AROM to improve to 65 degrees or better to show improving ROM to improve ability to perform ADLs and IADLs. LTG Duration 8 Two Impairment Shoulder AROM deficits Short Term Goal (STG) Pt's right shoulder ABD AROM to improve to 160 degrees or better and left shoulder ABD AROM to improve to 110 degrees or better to show improving ROM to improve ability to perform ADLs and IADLs. STG Duration 4 Penitentiary Goal (LTG) Pt's right shoulder ABD AROM to improve to 170 degrees or better and left shoulder ABD AROM to improve to 130 degrees or better to show improving ROM to improve ability to perform ADLs and IADLs. LTG Duration 8 One Impairment Shoulder AROM deficits Short Term Goal (STG) Pt's right shoulder flexion AROM to improve to 130 degrees or better and left shoulder flexion AROM to improve to 110 degrees or better to show improving ROM to improve ability to perform ADLs and IADLs. STG Duration 4 Penitentiary Goal (LTG) Pt's right shoulder flexion AROM to improve to 150 degrees or better and left shoulder flexion AROM to improve to 130 degrees or better to show improving ROM to improve ability to perform ADLs and IADLs. LTG Duration 8 Assessment Summary Assessment Progressed patient with addition of strength exercises to address postural shoulder muscles. Educated patient on anatomy and mechanics of the shoulder. Pateint concerned with catching and his bone spurs, educated patient not to push into pain with exercises . Physical Therapy Plan Frequency and Duration Frequency of Treatment 2x/Week Duration of treatment (weeks) 8 Plan of Care Start Date 06/08/23 Plan of Care End Date 08/03/23 Therapeutic Interventions Therapeutic Interventions Home Exercise Program,Joint Mobilizations,Manual Therapy, Neuromuscular Re-education, Patient/Caregiver Education, Self-Care/Home Management,Soft Tissue Mobilization,Taping, Therapeutic Activities, Therapeutic Exercises Modalities Cold Pack/Ice Massage,Electric Stimulation,Hot Packs Next Visit Focus/Plan Next Note Type Treatment Note Next Visit Plan Add thoracic and BUE mobility exercises and low level periscapular and RTC strengthening to improve biomechanics and posture.
--- NOTE | 2023-06-20 10:15 | PT.OTN ---
Current Diagnoses Pain in right shoulder (06/20/23) Pain in left shoulder (06/20/23) Physical Therapy Treatment Note PT-OP-A Visit Information Start: 06/08/23 08:25 Freq: Status: Active Protocol: Document 06/20/23 08:36 AB (Rec: 06/20/23 10:14 AB [id number]) Out-Patient Physical Therapy Visit Information Visit Information Visit Type Treatment Note Visit Start Time 08:30 Visit Stop Time 09:18 Total Visit Minutes 48 Visit Number 4 Number of GROCERY STORE MANAGER Visits 1 PT-OP-B Current Condition Start: 06/08/23 08:25 Freq: Status: Active Protocol: Document 06/08/23 08:26 AB (Rec: 06/08/23 10:43 AB [id number]) Current Condition History of Current Condition Onset Date Chronic History of Current Condition The pt reports that since COVID, he has been having increasing bilateral shoulder pain (L>R), as well as mobility deficits (L>R). He is able to push through the pain for almost all of his recreational activities, but has trouble getting to sleep and has pain that wakes him up . He reports a 4/10 pain at worst with agg activities ( reaching across his body), 0/ 10 at best. Prior Treatments and Tests Has tried some exercises. Xrays: narrowing space and OA Future Testing and Treatments Planned Will possibly get injections Treatment Goals Patient/Caregiver Goals To return to lifting weights Current Functional Impairments (Reported) Functional Limitations- Recreation/ Participates in hiking, Hobbies kayaking but pushes through the pain. Unable to weight lift currently. PT-OP-C Subjective Start: 06/08/23 08:25 Freq: Status: Active Protocol: Document 06/20/23 08:36 AB (Rec: 06/20/23 10:14 AB [id number]) OP-PT Subjective Patient Comments Patient Comments The pt reports that his HEP has been helpfult to improve his mobility but continues with pain. PT-OP-J Posture/Palpation/Skin Start: 06/08/23 08:25 Freq: Status: Active Protocol: Document 06/08/23 08:26 AB (Rec: 06/08/23 10:43 AB [id number]) Posture Evaluation Position Sitting Evaluation View Lateral T-Spine Posture Increased Kyphosis PT-OP-K Range of Motion Start: 06/08/23 08:25 Freq: Status: Active Protocol: Document 06/08/23 08:26 AB (Rec: 06/08/23 10:43 AB [id number]) Shoulder Goniometric Range of Motion Shoulder Right Active Shoulder ROM WFL Yes Testing Position Sitting Flexion 118 Abduction 149 External Rotation at 0 degrees Abduction 60 Internal Rotation Behind Back (text) T3 Comments Functional ER: L1 Mild pain (1/10) with all motions, begins to compensate with UT for shoulder flexion and ABD Left Active Shoulder ROM WFL No Testing Position Sitting Flexion 93 Abduction 97 External Rotation at 0 degrees Abduction 42 Internal Rotation Behind Back (text) C5 Comments Functional ER: L4 Pain (4/10) with all motions, begins to compensate with UT for shoulder flexion and ABD PT-OP-M Strength Start: 06/08/23 08:25 Freq: Status: Active Protocol: Document 06/08/23 08:26 AB (Rec: 06/08/23 10:43 AB [id number]) Shoulder Strength Shoulder Manual Muscle Testing Right Flexion 5 Normal Extension 5 Normal Abduction (C5) 4+ Good+ Internal Rotation 4+ Good+ Horizontal Abduction 4+ Good+ Comments Denies pain Left Flexion 5 Normal Extension 5 Normal Abduction (C5) 4+ Good+ External Rotation 4+ Good+ Internal Rotation 4+ Good+ Comments Denies pain Elbow/Forearm Strength Elbow and Forearm Manual Muscle Testing Right Flexion (C6) 5 Normal Extension (C7) 5 Normal Left Flexion (C6) 5 Normal Extension (C7) 5 Normal PT-OP-Q Treatments Start: 06/08/23 08:25 Freq: Status: Active Protocol: Document 06/20/23 08:36 AB (Rec: 06/20/23 10:14 AB [id number]) Therapeutic Exercises Sidelying Exercises Pulleys Sidelying Exercise Name Shldr flex, scaption, ABD with pulleys Side left Equipment Used Pulleys Reps/Minutes 2 min ea Sitting Exercises Thoracic ext stretch Equipment Used chair; foam roller (supine) Reps/Minutes 2x10, 5 sec hold Comments performed sitting over back of chair then supine over foam roller IR Sitting Exercise Name RROM>walkouts Side left Resistance peach TB Reps/Minutes 1x10 ea ER Sitting Exercise Name RROM Side left Resistance orange TB Equipment Used 2x10 Rows Resistance orange TB, [place] green Reps/Minutes 2x15 PT-OP-T Assessment and Plan Start: 06/08/23 08:25 Freq: Status: Active Protocol: Document 06/20/23 08:36 AB (Rec: 06/20/23 10:14 AB [id number]) Physical Therapy Assessment Goals Six Impairment Strength Short Term Goal (STG) Pt's gross BUE MMT scores to improve to 5/5 to show improving strength to improve ability to perform ADLs and IADLs. STG Duration 4 Fci Goal (LTG) Pt to report being able to return to weight lifting with minimal to no pain to show improving strength to return to recreational activities. LTG Duration 8 Five Short Term Goal (STG) Pt's left shoulder functional IR AROM to improve to L1 or better and right shoulder functional IR AROM to improve to T10 or better to show improving ROM to improve ability to perform ADLs and IADLs. STG Duration 4 Fci Goal (LTG) Pt's left shoulder functional IR AROM to improve to T10 or better and right shoulder functional IR AROM to improve to T8 or better to show improving ROM to improve ability to perform ADLs and IADLs. LTG Duration 8 Four Impairment Shoulder AROM deficits Short Term Goal (STG) Pt's left shoulder functional ER AROM to improve to C7 or better to show improving ROM to improve ability to perform ADLs and IADLs. STG Duration 4 Fci Goal (LTG) Pt's left shoulder functional ER AROM to improve to T3 or better to show improving ROM to improve ability to perform ADLs and IADLs. LTG Duration 8 Three Impairment Shoulder AROM deficits Short Term Goal (STG) Pt's right shoulder ER AROM to improve to 65 degrees or better and left shoulder ER AROM to improve to 55 degrees or better to show improving ROM to improve ability to perform ADLs and IADLs. STG Duration 4 Manufactured Buildings Repairer Goal (LTG) Pt's left shoulder ER AROM to improve to 65 degrees or better to show improving ROM to improve ability to perform ADLs and IADLs. LTG Duration 8 Two Impairment Shoulder AROM deficits Short Term Goal (STG) Pt's right shoulder ABD AROM to improve to 160 degrees or better and left shoulder ABD AROM to improve to 110 degrees or better to show improving ROM to improve ability to perform ADLs and IADLs. STG Duration 4 Manufactured Buildings Repairer Goal (LTG) Pt's right shoulder ABD AROM to improve to 170 degrees or better and left shoulder ABD AROM to improve to 130 degrees or better to show improving ROM to improve ability to perform ADLs and IADLs. LTG Duration 8 One Impairment Shoulder AROM deficits Short Term Goal (STG) Pt's right shoulder flexion AROM to improve to 130 degrees or better and left shoulder flexion AROM to improve to 110 degrees or better to show improving ROM to improve ability to perform ADLs and IADLs. STG Duration 4 Fci Goal (LTG) Pt's right shoulder flexion AROM to improve to 150 degrees or better and left shoulder flexion AROM to improve to 130 degrees or better to show improving ROM to improve ability to perform ADLs and IADLs. LTG Duration 8 Assessment Summary Assessment Continued with progressions made last session, with the exception of regressing shoulder IR RROM to walkouts ( isometric) due to increased pain when performing RROM. Pulleys were added to improve UE mobility, and thoracic ext stretch to improve thoracic spine mobility. The pt continues to require verbal cues to avoid compensating with UT for shoulder elevation or by rotating trunk when performing shoulder IR/ER. The pt continues to benefit from skilled PT to improve symptoms and improve his level of function. Physical Therapy Plan Frequency and Duration Frequency of Treatment 2x/Week Duration of treatment (weeks) 8 Plan of Care Start Date 06/08/23 Plan of Care End Date 08/03/23 Therapeutic Interventions Therapeutic Interventions Home Exercise Program,Joint Mobilizations,Manual Therapy, Neuromuscular Re-education, Patient/Caregiver Education, Self-Care/Home Management,Soft Tissue Mobilization,Taping, Therapeutic Activities, Therapeutic Exercises Modalities Cold Pack/Ice Massage,Electric Stimulation,Hot Packs Next Visit Focus/Plan Next Note Type Treatment Note Next Visit Plan If pt shows good form when performing shoulder IR and ER, add these to HEP.
--- NOTE | 2023-07-06 10:54 | PT.OTN ---
Current Diagnoses Pain in right shoulder (07/06/23) Pain in left shoulder (07/06/23) Physical Therapy Treatment Note PT-OP-A Visit Information Start: 06/08/23 08:25 Freq: Status: Active Protocol: Document 07/06/23 09:12 (Rec: 07/06/23 10:54 [id number]) Out-Patient Physical Therapy Visit Information Visit Information Visit Type Treatment Note Visit Note Pt late Visit Start Time 09:19 Visit Stop Time 10:04 Total Visit Minutes 45 Visit Number 5 Number of CALL CENTER SUPPORT REPRESENTATIVE Visits 1 PT-OP-B Current Condition Start: 06/08/23 08:25 Freq: Status: Active Protocol: Document 06/08/23 08:26 AB (Rec: 06/08/23 10:43 AB [id number]) Current Condition History of Current Condition Onset Date Chronic History of Current Condition The pt reports that since COVID, he has been having increasing bilateral shoulder pain (L>R), as well as mobility deficits (L>R). He is able to push through the pain for almost all of his recreational activities, but has trouble getting to sleep and has pain that wakes him up . He reports a 4/10 pain at worst with agg activities ( reaching across his body), 0/ 10 at best. Prior Treatments and Tests Has tried some exercises. Xrays: narrowing space and OA Future Testing and Treatments Planned Will possibly get injections Treatment Goals Patient/Caregiver Goals To return to lifting weights Current Functional Impairments (Reported) Functional Limitations- Recreation/ Participates in hiking, Hobbies kayaking but pushes through the pain. Unable to weight lift currently. PT-OP-C Subjective Start: 06/08/23 08:25 Freq: Status: Active Protocol: Document 07/06/23 09:12 (Rec: 07/06/23 10:54 [id number]) OP-PT Subjective Patient Comments Patient Comments Pt reports that his mobility has increased and pain has improved some. PT-OP-J Posture/Palpation/Skin Start: 06/08/23 08:25 Freq: Status: Active Protocol: Document 06/08/23 08:26 AB (Rec: 06/08/23 10:43 AB [id number]) Posture Evaluation Position Sitting Evaluation View Lateral T-Spine Posture Increased Kyphosis PT-OP-K Range of Motion Start: 06/08/23 08:25 Freq: Status: Active Protocol: Document 06/08/23 08:26 AB (Rec: 06/08/23 10:43 AB [id number]) Shoulder Goniometric Range of Motion Shoulder Right Active Shoulder ROM WFL Yes Testing Position Sitting Flexion 118 Abduction 149 External Rotation at 0 degrees Abduction 60 Internal Rotation Behind Back (text) T3 Comments Functional ER: L1 Mild pain (1/10) with all motions, begins to compensate with UT for shoulder flexion and ABD Left Active Shoulder ROM WFL No Testing Position Sitting Flexion 93 Abduction 97 External Rotation at 0 degrees Abduction 42 Internal Rotation Behind Back (text) C5 Comments Functional ER: L4 Pain (4/10) with all motions, begins to compensate with UT for shoulder flexion and ABD PT-OP-M Strength Start: 06/08/23 08:25 Freq: Status: Active Protocol: Document 06/08/23 08:26 AB (Rec: 06/08/23 10:43 AB [id number]) Shoulder Strength Shoulder Manual Muscle Testing Right Flexion 5 Normal Extension 5 Normal Abduction (C5) 4+ Good+ Internal Rotation 4+ Good+ Horizontal Abduction 4+ Good+ Comments Denies pain Left Flexion 5 Normal Extension 5 Normal Abduction (C5) 4+ Good+ External Rotation 4+ Good+ Internal Rotation 4+ Good+ Comments Denies pain Elbow/Forearm Strength Elbow and Forearm Manual Muscle Testing Right Flexion (C6) 5 Normal Extension (C7) 5 Normal Left Flexion (C6) 5 Normal Extension (C7) 5 Normal PT-OP-Q Treatments Start: 06/08/23 08:25 Freq: Status: Active Protocol: Document 07/06/23 09:12 SW (Rec: 07/06/23 10:54 SW [id number]) Therapeutic Exercises Prone Exercises Scapular retraction Prone Exercise Name Prone Side bilateral Reps/Minutes 2 x 10 Comments Towel roll for forehead Sidelying Exercises Pulleys Sidelying Exercise Name Shldr flex, scaption, ABD with pulleys Side left Equipment Used Pulleys Reps/Minutes 2 min ea Comments Cues for compensations, L shldr hiking Sitting Exercises Thoracic ext stretch Equipment Used chair; foam roller (supine) Reps/Minutes 2x10, 5 sec hold Comments performed sitting over back of chair then supine over foam roller IR Sitting Exercise Name RROM>walkouts Side left Resistance peach TB Reps/Minutes 1x10 ea ER Sitting Exercise Name RROM>walkout issued HEP Side left Resistance orange TB Equipment Used 2x10 Rows Resistance [place] green Reps/Minutes 2x15 Standing Exercises Cross arm stretch Standing Exercise Name Posterior shoulder stretch Side bilateral Reps/Minutes 2 x 30 Comments for posterior shoulder capsule for Goal to increase AROM Doorway Stretch Standing Exercise Name Pectoralis stretch- low, W Side bilateral Reps/Minutes 3 x 30 PT-OP-T Assessment and Plan Start: 06/08/23 08:25 Freq: Status: Active Protocol: Document 07/06/23 09:12 (Rec: 07/06/23 10:54 [id number]) Physical Therapy Assessment Goals Six Impairment Strength Short Term Goal (STG) Pt's gross BUE MMT scores to improve to 5/5 to show improving strength to improve ability to perform ADLs and IADLs. STG Duration 4 Care Home Goal (LTG) Pt to report being able to return to weight lifting with minimal to no pain to show improving strength to return to recreational activities. LTG Duration 8 Five Short Term Goal (STG) Pt's left shoulder functional IR AROM to improve to L1 or better and right shoulder functional IR AROM to improve to T10 or better to show improving ROM to improve ability to perform ADLs and IADLs. STG Duration 4 Hotel Dining Room Cashier Goal (LTG) Pt's left shoulder functional IR AROM to improve to T10 or better and right shoulder functional IR AROM to improve to T8 or better to show improving ROM to improve ability to perform ADLs and IADLs. LTG Duration 8 Four Impairment Shoulder AROM deficits Short Term Goal (STG) Pt's left shoulder functional ER AROM to improve to C7 or better to show improving ROM to improve ability to perform ADLs and IADLs. STG Duration 4 Care Home Goal (LTG) Pt's left shoulder functional ER AROM to improve to T3 or better to show improving ROM to improve ability to perform ADLs and IADLs. LTG Duration 8 Three Impairment Shoulder AROM deficits Short Term Goal (STG) Pt's right shoulder ER AROM to improve to 65 degrees or better and left shoulder ER AROM to improve to 55 degrees or better to show improving ROM to improve ability to perform ADLs and IADLs. STG Duration 4 Hotel Dining Room Cashier Goal (LTG) Pt's left shoulder ER AROM to improve to 65 degrees or better to show improving ROM to improve ability to perform ADLs and IADLs. LTG Duration 8 Two Impairment Shoulder AROM deficits Short Term Goal (STG) Pt's right shoulder ABD AROM to improve to 160 degrees or better and left shoulder ABD AROM to improve to 110 degrees or better to show improving ROM to improve ability to perform ADLs and IADLs. STG Duration 4 Care Home Goal (LTG) Pt's right shoulder ABD AROM to improve to 170 degrees or better and left shoulder ABD AROM to improve to 130 degrees or better to show improving ROM to improve ability to perform ADLs and IADLs. LTG Duration 8 One Impairment Shoulder AROM deficits Short Term Goal (STG) Pt's right shoulder flexion AROM to improve to 130 degrees or better and left shoulder flexion AROM to improve to 110 degrees or better to show improving ROM to improve ability to perform ADLs and IADLs. STG Duration 4 Hotel Dining Room Cashier Goal (LTG) Pt's right shoulder flexion AROM to improve to 150 degrees or better and left shoulder flexion AROM to improve to 130 degrees or better to show improving ROM to improve ability to perform ADLs and IADLs. LTG Duration 8 Assessment Summary Assessment Reviewed ER/IR strengthening exercises, continues to require verbal cueing for compensations, difficulty maintaining form with ER RROM with Left shoulder causing pain, regressed to walkout, demonstrated good carryover with form, issued HEP for ER walkout, did not issue for IR at this time. Plan to review strengthening and progress as tolerated next session. Physical Therapy Plan Frequency and Duration Frequency of Treatment 2x/Week Duration of treatment (weeks) 8 Plan of Care Start Date 06/08/23 Plan of Care End Date 08/03/23 Therapeutic Interventions Therapeutic Interventions Home Exercise Program,Joint Mobilizations,Manual Therapy, Neuromuscular Re-education, Patient/Caregiver Education, Self-Care/Home Management,Soft Tissue Mobilization,Taping, Therapeutic Activities, Therapeutic Exercises Modalities Cold Pack/Ice Massage,Electric Stimulation,Hot Packs Next Visit Focus/Plan Next Note Type Treatment Note Next Visit Plan If pt shows good form when performing shoulder IR and ER, add these to HEP. *Issued HEP for ER walkout 01/23
--- NOTE | 2023-07-18 10:48 | PT.OTN ---
Current Diagnoses Pain in right shoulder (07/18/23) Pain in left shoulder (07/18/23) Physical Therapy Treatment Note PT-OP-A Visit Information Start: 06/08/23 08:25 Freq: Status: Active Protocol: Document 07/18/23 10:03 SP (Rec: 07/18/23 11:17 SP [id number]) Out-Patient Physical Therapy Visit Information Visit Information Visit Type Treatment Note Visit Start Time 10:03 Visit Stop Time 10:48 Total Visit Minutes 45 Visit Number 6 Number of RECEIVING DISTRIBUTION STATION OPERATOR Visits 2 Evaluation Information Evaluation Date 06/08/23 PT-OP-B Current Condition Start: 06/08/23 08:25 Freq: Status: Active Protocol: Document 06/08/23 08:26 AB (Rec: 06/08/23 10:43 AB [id number]) Current Condition History of Current Condition Onset Date Chronic History of Current Condition The pt reports that since COVID, he has been having increasing bilateral shoulder pain (L>R), as well as mobility deficits (L>R). He is able to push through the pain for almost all of his recreational activities, but has trouble getting to sleep and has pain that wakes him up . He reports a 4/10 pain at worst with agg activities ( reaching across his body), 0/ 10 at best. Prior Treatments and Tests Has tried some exercises. Xrays: narrowing space and OA Future Testing and Treatments Planned Will possibly get injections Treatment Goals Patient/Caregiver Goals To return to lifting weights Current Functional Impairments (Reported) Functional Limitations- Recreation/ Participates in hiking, Hobbies kayaking but pushes through the pain. Unable to weight lift currently. PT-OP-C Subjective Start: 06/08/23 08:25 Freq: Status: Active Protocol: Document 07/18/23 10:03 SP (Rec: 07/18/23 11:17 SP [id number]) OP-PT Subjective Patient Comments Patient Comments Pt report hasn't been busy kayaking, RV camping and biking so not compliant with HEP. PT-OP-J Posture/Palpation/Skin Start: 06/08/23 08:25 Freq: Status: Active Protocol: Document 06/08/23 08:26 AB (Rec: 06/08/23 10:43 AB [id number]) Posture Evaluation Position Sitting Evaluation View Lateral T-Spine Posture Increased Kyphosis PT-OP-K Range of Motion Start: 06/08/23 08:25 Freq: Status: Active Protocol: Document 06/08/23 08:26 AB (Rec: 06/08/23 10:43 AB [id number]) Shoulder Goniometric Range of Motion Shoulder Right Active Shoulder ROM WFL Yes Testing Position Sitting Flexion 118 Abduction 149 External Rotation at 0 degrees Abduction 60 Internal Rotation Behind Back (text) T3 Comments Functional ER: L1 Mild pain (1/10) with all motions, begins to compensate with UT for shoulder flexion and ABD Left Active Shoulder ROM WFL No Testing Position Sitting Flexion 93 Abduction 97 External Rotation at 0 degrees Abduction 42 Internal Rotation Behind Back (text) C5 Comments Functional ER: L4 Pain (4/10) with all motions, begins to compensate with UT for shoulder flexion and ABD PT-OP-M Strength Start: 06/08/23 08:25 Freq: Status: Active Protocol: Document 06/08/23 08:26 AB (Rec: 06/08/23 10:43 AB [id number]) Shoulder Strength Shoulder Manual Muscle Testing Right Flexion 5 Normal Extension 5 Normal Abduction (C5) 4+ Good+ Internal Rotation 4+ Good+ Horizontal Abduction 4+ Good+ Comments Denies pain Left Flexion 5 Normal Extension 5 Normal Abduction (C5) 4+ Good+ External Rotation 4+ Good+ Internal Rotation 4+ Good+ Comments Denies pain Elbow/Forearm Strength Elbow and Forearm Manual Muscle Testing Right Flexion (C6) 5 Normal Extension (C7) 5 Normal Left Flexion (C6) 5 Normal Extension (C7) 5 Normal PT-OP-Q Treatments Start: 06/08/23 08:25 Freq: Status: Active Protocol: Document 07/18/23 10:03 SP (Rec: 07/18/23 11:17 SP [id number]) Therapeutic Exercises Sidelying Exercises open book Sidelying Exercise Name added to HEP: Side left Resistance AROM- first couple reps hand on head, rest long arm axis Equipment Used tactile scap retract/inferior glide and humeral ER- less crunching Reps/Minutes x10 Comments V&tactile cues for scap AROM, arm HABD and head turn 1/2to end feel,slow Sitting Exercises pulleys Sitting Exercise Name Shldr flex, scaption, ABD with pulleys Side left Equipment Used used mirror Reps/Minutes 2 min Comments Cues for no UT, breath end range and use mirror- better form IR Sitting Exercise Name RROM>walkouts (standing) Side left Resistance orange TB>green Reps/Minutes 1x10 ea ER Sitting Exercise Name RROM>walkout issued HEP ( standing) Side left Resistance orange>green TB Equipment Used 2x10 Rows Sitting Exercise Name row and ext (standing) Resistance [place] ira green #3 Reps/Minutes 2x15 Comments cued scap retraction end range con and eccentric control- painfree Standing Exercises shld ext Standing Exercise Name initiated in PT Side bilateral Resistance TB #3 green Reps/Minutes x10 reps 2 SH Comments cued chest lift ER/ IR walk out isometrics Side left Resistance G TB Reps/Minutes 3 steps out x10 reps each Comments cued maintain Other Exercises self STMs Other Exercise Name pec, infrasp, suprasp, UT, rhomboid Side left Manual Therapy Treatment Soft Tissue Mobilization L Shoulder Body Location Pec, UT, LS, lat, SA Mobilization Type Rolling,Strumming,Sustained Pressure Intensity/Depth Moderate Body Position seated Comments manual and MWM head turns/nods , scap small ROM- then ed self use of theracane Joint Mobilizations scap thoracic Joint L Direction protraction/retraction Grade II Body Position R SL Comments manual and MWM with open book, tactile cues no UT recruitment PT-OP-T Assessment and Plan Start: 06/08/23 08:25 Freq: Status: Active Protocol: Document 07/18/23 10:03 SP (Rec: 07/18/23 11:17 SP [id number]) Physical Therapy Assessment Goals Six Impairment Strength Short Term Goal (STG) Pt's gross BUE MMT scores to improve to 5/5 to show improving strength to improve ability to perform ADLs and IADLs. STG Duration 4 Fur Comber Goal (LTG) Pt to report being able to return to weight lifting with minimal to no pain to show improving strength to return to recreational activities. LTG Duration 8 Five Short Term Goal (STG) Pt's left shoulder functional IR AROM to improve to L1 or better and right shoulder functional IR AROM to improve to T10 or better to show improving ROM to improve ability to perform ADLs and IADLs. STG Duration 4 Snf Goal (LTG) Pt's left shoulder functional IR AROM to improve to T10 or better and right shoulder functional IR AROM to improve to T8 or better to show improving ROM to improve ability to perform ADLs and IADLs. LTG Duration 8 Four Impairment Shoulder AROM deficits Short Term Goal (STG) Pt's left shoulder functional ER AROM to improve to C7 or better to show improving ROM to improve ability to perform ADLs and IADLs. STG Duration 4 Snf Goal (LTG) Pt's left shoulder functional ER AROM to improve to T3 or better to show improving ROM to improve ability to perform ADLs and IADLs. LTG Duration 8 Three Impairment Shoulder AROM deficits Short Term Goal (STG) Pt's right shoulder ER AROM to improve to 65 degrees or better and left shoulder ER AROM to improve to 55 degrees or better to show improving ROM to improve ability to perform ADLs and IADLs. STG Duration 4 Fur Comber Goal (LTG) Pt's left shoulder ER AROM to improve to 65 degrees or better to show improving ROM to improve ability to perform ADLs and IADLs. LTG Duration 8 Two Impairment Shoulder AROM deficits Short Term Goal (STG) Pt's right shoulder ABD AROM to improve to 160 degrees or better and left shoulder ABD AROM to improve to 110 degrees or better to show improving ROM to improve ability to perform ADLs and IADLs. STG Duration 4 Fur Comber Goal (LTG) Pt's right shoulder ABD AROM to improve to 170 degrees or better and left shoulder ABD AROM to improve to 130 degrees or better to show improving ROM to improve ability to perform ADLs and IADLs. LTG Duration 8 One Impairment Shoulder AROM deficits Short Term Goal (STG) Pt's right shoulder flexion AROM to improve to 130 degrees or better and left shoulder flexion AROM to improve to 110 degrees or better to show improving ROM to improve ability to perform ADLs and IADLs. STG Duration 4 Fur Comber Goal (LTG) Pt's right shoulder flexion AROM to improve to 150 degrees or better and left shoulder flexion AROM to improve to 130 degrees or better to show improving ROM to improve ability to perform ADLs and IADLs. LTG Duration 8 Assessment Summary Assessment Pt good response to resisted ex today able increase to GTB. Improved self corrections with use mirror during pulleys today and VS/tactile cues during TB ex for Rhomboid/LT engagement strengthening & posture. Good response to manual and ed/performance under instruction of added open book to HEP for increase scapular ROM, noted inferior GH jt glide and scapular inferior and retraction glide, some GH crunching but improved with reps and tactile cues for ER during open book for progressing into ROM. Pt would benefit from continued focus on scapular ROM, and continued manual for carryover ROM support. Physical Therapy Plan Frequency and Duration Frequency of Treatment 2x/Week Duration of treatment (weeks) 8 Plan of Care Start Date 06/08/23 Plan of Care End Date 08/03/23 Therapeutic Interventions Therapeutic Interventions Home Exercise Program,Joint Mobilizations,Manual Therapy, Neuromuscular Re-education, Patient/Caregiver Education, Self-Care/Home Management,Soft Tissue Mobilization,Taping, Therapeutic Activities, Therapeutic Exercises Modalities Cold Pack/Ice Massage,Electric Stimulation,Hot Packs Next Visit Focus/Plan Next Note Type Treatment Note Next Visit Plan Continue manual L scap and GH jt, review open book added last tx. POC: Add thoracic and BUE mobility exercises and low level periscapular and RTC strengthening to improve biomechanics and posture.
--- NOTE | 2023-08-01 12:15 | PT.OTN ---
Current Diagnoses Pain in right shoulder (08/01/23) Pain in left shoulder (08/01/23) Physical Therapy Treatment Note PT-OP-A Visit Information Start: 06/08/23 08:25 Freq: Status: Active Protocol: Document 08/01/23 09:30 AB (Rec: 08/01/23 12:14 AB [id number]) Out-Patient Physical Therapy Visit Information Visit Information Visit Type Treatment Note Visit Note Pt is 12 minutes late Visit Start Time 09:26 Visit Stop Time 10:00 Visit Number 7 Evaluation Information Evaluation Date 06/08/23 PT-OP-B Current Condition Start: 06/08/23 08:25 Freq: Status: Active Protocol: Document 06/08/23 08:26 AB (Rec: 06/08/23 10:43 AB [id number]) Current Condition History of Current Condition Onset Date Chronic History of Current Condition The pt reports that since COVID, he has been having increasing bilateral shoulder pain (L>R), as well as mobility deficits (L>R). He is able to push through the pain for almost all of his recreational activities, but has trouble getting to sleep and has pain that wakes him up . He reports a 4/10 pain at worst with agg activities ( reaching across his body), 0/ 10 at best. Prior Treatments and Tests Has tried some exercises. Xrays: narrowing space and OA Future Testing and Treatments Planned Will possibly get injections Treatment Goals Patient/Caregiver Goals To return to lifting weights Current Functional Impairments (Reported) Functional Limitations- Recreation/ Participates in hiking, Hobbies kayaking but pushes through the pain. Unable to weight lift currently. PT-OP-C Subjective Start: 06/08/23 08:25 Freq: Status: Active Protocol: Document 08/01/23 09:30 AB (Rec: 08/01/23 12:14 AB [id number]) OP-PT Subjective Patient Comments Patient Comments The pt reports he has not been very compliant with HEP. PT-OP-J Posture/Palpation/Skin Start: 06/08/23 08:25 Freq: Status: Active Protocol: Document 06/08/23 08:26 AB (Rec: 06/08/23 10:43 AB [id number]) Posture Evaluation Position Sitting Evaluation View Lateral T-Spine Posture Increased Kyphosis PT-OP-K Range of Motion Start: 06/08/23 08:25 Freq: Status: Active Protocol: Document 06/08/23 08:26 AB (Rec: 06/08/23 10:43 AB [id number]) Shoulder Goniometric Range of Motion Shoulder Right Active Shoulder ROM WFL Yes Testing Position Sitting Flexion 118 Abduction 149 External Rotation at 0 degrees Abduction 60 Internal Rotation Behind Back (text) T3 Comments Functional ER: L1 Mild pain (1/10) with all motions, begins to compensate with UT for shoulder flexion and ABD Left Active Shoulder ROM WFL No Testing Position Sitting Flexion 93 Abduction 97 External Rotation at 0 degrees Abduction 42 Internal Rotation Behind Back (text) C5 Comments Functional ER: L4 Pain (4/10) with all motions, begins to compensate with UT for shoulder flexion and ABD PT-OP-M Strength Start: 06/08/23 08:25 Freq: Status: Active Protocol: Document 06/08/23 08:26 AB (Rec: 06/08/23 10:43 AB [id number]) Shoulder Strength Shoulder Manual Muscle Testing Right Flexion 5 Normal Extension 5 Normal Abduction (C5) 4+ Good+ Internal Rotation 4+ Good+ Horizontal Abduction 4+ Good+ Comments Denies pain Left Flexion 5 Normal Extension 5 Normal Abduction (C5) 4+ Good+ External Rotation 4+ Good+ Internal Rotation 4+ Good+ Comments Denies pain Elbow/Forearm Strength Elbow and Forearm Manual Muscle Testing Right Flexion (C6) 5 Normal Extension (C7) 5 Normal Left Flexion (C6) 5 Normal Extension (C7) 5 Normal PT-OP-Q Treatments Start: 06/08/23 08:25 Freq: Status: Active Protocol: Document 08/01/23 09:30 AB (Rec: 08/01/23 12:14 AB [id number]) Cardio Equipment Upper Body Ergometer (UBE) Duration (Minutes) 5 Other 2.5 fwd, 2.5 bwd Therapeutic Exercises Supine Exercises Cane shldr flexion AAROM Side bilateral Resistance 4# Equipment Used Cane/dowel Reps/Minutes 10x5 sec hold Sidelying Exercises open book Side left Equipment Used tactile scap retract/inferior glide and humeral ER- less crunching Reps/Minutes x10 Comments V&tactile cues for scap AROM, arm HABD and head turn 1/2to end feel,slow Sitting Exercises Rows Sitting Exercise Name row and ext (standing) Resistance blue TB Reps/Minutes 2x15 Comments cued scap retraction end range con and eccentric control- painfree PT-OP-T Assessment and Plan Start: 06/08/23 08:25 Freq: Status: Active Protocol: Document 08/01/23 09:30 AB (Rec: 08/01/23 12:14 AB [id number]) Physical Therapy Assessment Goals Six Impairment Strength Short Term Goal (STG) Pt's gross BUE MMT scores to improve to 5/5 to show improving strength to improve ability to perform ADLs and IADLs. STG Duration 4 Plywood Stock Grader Goal (LTG) Pt to report being able to return to weight lifting with minimal to no pain to show improving strength to return to recreational activities. LTG Duration 8 Five Short Term Goal (STG) Pt's left shoulder functional IR AROM to improve to L1 or better and right shoulder functional IR AROM to improve to T10 or better to show improving ROM to improve ability to perform ADLs and IADLs. STG Duration 4 Detention Goal (LTG) Pt's left shoulder functional IR AROM to improve to T10 or better and right shoulder functional IR AROM to improve to T8 or better to show improving ROM to improve ability to perform ADLs and IADLs. LTG Duration 8 Four Impairment Shoulder AROM deficits Short Term Goal (STG) Pt's left shoulder functional ER AROM to improve to C7 or better to show improving ROM to improve ability to perform ADLs and IADLs. STG Duration 4 Detention Goal (LTG) Pt's left shoulder functional ER AROM to improve to T3 or better to show improving ROM to improve ability to perform ADLs and IADLs. LTG Duration 8 Three Impairment Shoulder AROM deficits Short Term Goal (STG) Pt's right shoulder ER AROM to improve to 65 degrees or better and left shoulder ER AROM to improve to 55 degrees or better to show improving ROM to improve ability to perform ADLs and IADLs. STG Duration 4 Detention Goal (LTG) Pt's left shoulder ER AROM to improve to 65 degrees or better to show improving ROM to improve ability to perform ADLs and IADLs. LTG Duration 8 Two Impairment Shoulder AROM deficits Short Term Goal (STG) Pt's right shoulder ABD AROM to improve to 160 degrees or better and left shoulder ABD AROM to improve to 110 degrees or better to show improving ROM to improve ability to perform ADLs and IADLs. STG Duration 4 Plywood Stock Grader Goal (LTG) Pt's right shoulder ABD AROM to improve to 170 degrees or better and left shoulder ABD AROM to improve to 130 degrees or better to show improving ROM to improve ability to perform ADLs and IADLs. LTG Duration 8 One Impairment Shoulder AROM deficits Short Term Goal (STG) Pt's right shoulder flexion AROM to improve to 130 degrees or better and left shoulder flexion AROM to improve to 110 degrees or better to show improving ROM to improve ability to perform ADLs and IADLs. STG Duration 4 Detention Goal (LTG) Pt's right shoulder flexion AROM to improve to 150 degrees or better and left shoulder flexion AROM to improve to 130 degrees or better to show improving ROM to improve ability to perform ADLs and IADLs. LTG Duration 8 Assessment Summary Assessment PT had a discussion with the pt regarding the importance of being compliant with HEP in order to progress in therapy and improve his symptoms. The pt does demonstrate improved mobility and mechanics but continues with significant deficits. The pt is agreeable to deciding at next visit with PT (08/08) whether to continue with therapy or to discharge based on his progress. While the pt would continue to benefit from skilled PT, the pt would have a larger benefit if he is compliant with HEP. Physical Therapy Plan Frequency and Duration Frequency of Treatment 2x/Week Duration of treatment (weeks) 8 Plan of Care Start Date 06/08/23 Plan of Care End Date 08/03/23 Therapeutic Interventions Therapeutic Interventions Home Exercise Program,Joint Mobilizations,Manual Therapy, Neuromuscular Re-education, Patient/Caregiver Education, Self-Care/Home Management,Soft Tissue Mobilization,Taping, Therapeutic Activities, Therapeutic Exercises Modalities Cold Pack/Ice Massage,Electric Stimulation,Hot Packs Next Visit Focus/Plan Next Note Type Treatment Note Next Visit Plan Continue manual L scap and GH jt, review open book added last tx. POC: Add thoracic and BUE mobility exercises and low level periscapular and RTC strengthening to improve biomechanics and posture.
--- NOTE | 2023-08-08 11:52 | PT.OPPOC ---
Physical, Occupational & Speech Therapy At [facility] Current Diagnoses Pain in right shoulder (08/08/23) Pain in left shoulder (08/08/23) Visit Care Team Role Provider Type Ant George MD Attending Provider Physician Family Provider Primary Care Provider Referring Provider Specialty: Family Practice Address: [address] [place] [address] Email: [email or web address] Plan Of Care PT-OP-T Assessment and Plan Start: 06/08/23 08:25 Freq: Status: Active Protocol: Document 08/08/23 09:18 AB (Rec: 08/08/23 11:50 AB [id number]) Physical Therapy Assessment Goals Six Impairment Strength Short Term Goal (STG) Pt's gross BUE MMT scores to improve to 5/5 to show improving strength to improve ability to perform ADLs and IADLs. STG Duration 4 Concrete Pipe Plant Supervisor Goal (LTG) Pt to report being able to return to weight lifting with minimal to no pain to show improving strength to return to recreational activities. LTG Duration 8 Five Impairment Shoulder AROM Short Term Goal (STG) Pt's left shoulder functional IR AROM to improve to L1 or better and right shoulder functional IR AROM to improve to T10 or better to show improving ROM to improve ability to perform ADLs and IADLs. STG Duration 4 Assisted Goal (LTG) Pt's left shoulder functional IR AROM to improve to T10 or better and right shoulder functional IR AROM to improve to T8 or better to show improving ROM to improve ability to perform ADLs and IADLs. LTG Duration 8 Four Impairment Shoulder AROM deficits Short Term Goal (STG) Pt's left shoulder functional ER AROM to improve to C7 or better to show improving ROM to improve ability to perform ADLs and IADLs. STG Duration 4 Assisted Goal (LTG) Pt's left shoulder functional ER AROM to improve to T3 or better to show improving ROM to improve ability to perform ADLs and IADLs. LTG Duration 8 Three Impairment Shoulder AROM deficits Short Term Goal (STG) Pt's right shoulder ER AROM to improve to 65 degrees or better and left shoulder ER AROM to improve to 55 degrees or better to show improving ROM to improve ability to perform ADLs and IADLs. STG Duration 4 Assisted Goal (LTG) Pt's left shoulder ER AROM to improve to 65 degrees or better to show improving ROM to improve ability to perform ADLs and IADLs. LTG Duration 8 Two Impairment Shoulder AROM deficits Short Term Goal (STG) Pt's right shoulder ABD AROM to improve to 160 degrees or better and left shoulder ABD AROM to improve to 110 degrees or better to show improving ROM to improve ability to perform ADLs and IADLs. STG Duration 4 Concrete Pipe Plant Supervisor Goal (LTG) Pt's right shoulder ABD AROM to improve to 170 degrees or better and left shoulder ABD AROM to improve to 130 degrees or better to show improving ROM to improve ability to perform ADLs and IADLs. LTG Duration 8 One Impairment Shoulder AROM deficits Short Term Goal (STG) Pt's right shoulder flexion AROM to improve to 130 degrees or better and left shoulder flexion AROM to improve to 110 degrees or better to show improving ROM to improve ability to perform ADLs and IADLs. STG Duration 4 Assisted Goal (LTG) Pt's right shoulder flexion AROM to improve to 150 degrees or better and left shoulder flexion AROM to improve to 130 degrees or better to show improving ROM to improve ability to perform ADLs and IADLs. LTG Duration 8 Progress Towards Goals Progress Towards Goals Progressing Toward Goals Progress Comments The pt is making progress, albeit slowly, due to noncompliance with HEP, and tardiness when attending sessions. Assessment Summary Assessment Regino Arteaga has completed 8 visits of skilled PT to address left shoulder impairments including ROM deficits, pain symptoms and weakness. While the pt has made progress in his ROM, strength and shoulder mechanics, he continues with significant deficits and pain symptoms. He is partially limited by his kyphotic posture, but his LUE measurements are not symmetrical to his RUE. Based on his improvements but remaining deficits, the pt would continue to benefit from skilled PT to return to his PLOF. An extended amount of time was spent educating the pt on his POC, including importance of being compliant with HEP, evidence based interventions and best practices for treating shoulder injuries, and updated POC. The pt is agreeable to continuing with PT and states he will try to be more compliant with HEP in order to improve further. Physical Therapy Plan Frequency and Duration Frequency of Treatment 2x/Week Duration of treatment (weeks) 6 Plan of Care Start Date 08/08/23 Plan of Care End Date 09/19/23 Therapeutic Interventions Therapeutic Interventions Home Exercise Program,Joint Mobilizations,Manual Therapy, Neuromuscular Re-education, Patient/Caregiver Education, Self-Care/Home Management,Soft Tissue Mobilization,Taping, Therapeutic Activities, Therapeutic Exercises Modalities Cold Pack/Ice Massage,Electric Stimulation,Hot Packs Next Visit Focus/Plan Next Note Type Treatment Note Next Visit Plan Continue manual L scap and GH jt, review open book added last tx. POC: Add thoracic and BUE mobility exercises and low level periscapular and RTC strengthening to improve biomechanics and posture. Plan of Care Dates Plan of Care Start Date 08/08/23 Plan of Care End Date 09/19/23 Electronically Signed by: Giorgio Jenkins, PT 08/08/23 [id number] If you are in agreement with this Plan of Care, please return a signed and dated copy. I have reviewed this Plan of Care and certify that the skilled therapy services above are required to meet the patient?s needs. Physician Signature Date Printed Name and Credentials Clinical Instructor Signature Printed Name and Credentials
--- NOTE | 2023-08-08 11:52 | PT.OTN ---
Current Diagnoses Pain in right shoulder (08/08/23) Pain in left shoulder (08/08/23) Physical Therapy Treatment Note PT-OP-A Visit Information Start: 06/08/23 08:25 Freq: Status: Active Protocol: Document 08/08/23 09:18 AB (Rec: 08/08/23 11:50 AB [id number]) Out-Patient Physical Therapy Visit Information Visit Information Visit Type Treatment Note Visit Note Pt arrived late Visit Start Time 09:27 Visit Stop Time 10:00 Total Visit Minutes 33 Visit Number 8 Evaluation Information Evaluation Date 06/08/23 PT-OP-B Current Condition Start: 06/08/23 08:25 Freq: Status: Active Protocol: Document 08/08/23 09:18 AB (Rec: 08/08/23 11:50 AB [id number]) Current Condition History of Current Condition Onset Date Chronic History of Current Condition The pt reports that since COVID, he has been having increasing bilateral shoulder pain (L>R), as well as mobility deficits (L>R). He is able to push through the pain for almost all of his recreational activities, but has trouble getting to sleep and has pain that wakes him up . He reports a 4/10 pain at worst with agg activities ( reaching across his body), 0/ 10 at best. Prior Treatments and Tests Has tried some exercises. Xrays: narrowing space and OA Future Testing and Treatments Planned Will possibly get injections Treatment Goals Patient/Caregiver Goals To return to lifting weights Current Functional Impairments (Reported) Functional Limitations- Recreation/ Participates in hiking, Hobbies kayaking but pushes through the pain. PT-OP-C Subjective Start: 06/08/23 08:25 Freq: Status: Active Protocol: Document 08/08/23 09:18 AB (Rec: 08/08/23 11:50 AB [id number]) OP-PT Subjective Patient Comments Patient Comments The pt reports feeling like he has made improvements overall , but feel like he can continue to improve his ROM in his LUE. He also reports he continues with pain at night that wakes him up. He acknowledges that he might have greater improvement if he was compliant with his HEP. Patient Questionnaires Quick Dash- Upper Extremity Quick Dash UE Score 13.63% Quick Dash UE Impairment 1 to 19% Impaired (Score 1-19) PT-OP-J Posture/Palpation/Skin Start: 06/08/23 08:25 Freq: Status: Active Protocol: Document 08/08/23 09:18 AB (Rec: 08/08/23 11:50 AB [id number]) Posture Evaluation Position Sitting Evaluation View Lateral T-Spine Posture Increased Kyphosis PT-OP-K Range of Motion Start: 06/08/23 08:25 Freq: Status: Active Protocol: Document 08/08/23 09:18 AB (Rec: 08/08/23 11:50 AB [id number]) Shoulder Goniometric Range of Motion Shoulder Right Active Shoulder ROM WFL Yes Testing Position Sitting Flexion 149 Abduction 158 External Rotation at 0 degrees Abduction 60 Internal Rotation Behind Back (text) T5 Comments Functional ER: T12 Mild pain (1/10) with all motions, begins to compensate with UT for shoulder flexion and ABD Left Active Shoulder ROM WFL No Testing Position Sitting Flexion 119 Abduction 100 External Rotation at 0 degrees Abduction 50 Internal Rotation Behind Back (text) T3 Comments Functional ER: L4 Pain (4-6/10) with shoulder ABD, begins to compensate with UT for shoulder flexion and ABD PT-OP-M Strength Start: 06/08/23 08:25 Freq: Status: Active Protocol: Document 08/08/23 09:18 AB (Rec: 08/08/23 11:50 AB [id number]) Shoulder Strength Shoulder Manual Muscle Testing Right Flexion 5 Normal Extension 5 Normal Abduction (C5) 5 Normal Internal Rotation 4+ Good+ Horizontal Abduction 4+ Good+ Comments Denies pain Left Flexion 5 Normal Extension 5 Normal Abduction (C5) 5 Normal External Rotation 4+ Good+ Internal Rotation 4+ Good+ Comments Mild pain with ABD Elbow/Forearm Strength Elbow and Forearm Manual Muscle Testing Right Flexion (C6) 5 Normal Extension (C7) 5 Normal Left Flexion (C6) 5 Normal Extension (C7) 5 Normal PT-OP-Q Treatments Start: 06/08/23 08:25 Freq: Status: Active Protocol: Document 08/08/23 09:18 AB (Rec: 08/08/23 11:50 AB [id number]) Therapeutic Exercises Sitting Exercises pulleys Sitting Exercise Name Shldr flex, scaption, ABD with pulleys Side left Equipment Used used mirror Reps/Minutes 3 min ea Comments Cues for no UT, breath end range and use mirror- better form Self-Care/Home Management Treatment Education Patient Education Body Mechanics,Home Exercise Program,Pain Management Other Education Also educated in evidence based interventions. PT-OP-T Assessment and Plan Start: 06/08/23 08:25 Freq: Status: Active Protocol: Document 08/08/23 09:18 AB (Rec: 08/08/23 11:50 AB [id number]) Physical Therapy Assessment Goals Six Impairment Strength Short Term Goal (STG) Pt's gross BUE MMT scores to improve to 5/5 to show improving strength to improve ability to perform ADLs and IADLs. STG Duration 4 Furniture Associate Goal (LTG) Pt to report being able to return to weight lifting with minimal to no pain to show improving strength to return to recreational activities. LTG Duration 8 Five Impairment Shoulder AROM Short Term Goal (STG) Pt's left shoulder functional IR AROM to improve to L1 or better and right shoulder functional IR AROM to improve to T10 or better to show improving ROM to improve ability to perform ADLs and IADLs. STG Duration 4 Furniture Associate Goal (LTG) Pt's left shoulder functional IR AROM to improve to T10 or better and right shoulder functional IR AROM to improve to T8 or better to show improving ROM to improve ability to perform ADLs and IADLs. LTG Duration 8 Four Impairment Shoulder AROM deficits Short Term Goal (STG) Pt's left shoulder functional ER AROM to improve to C7 or better to show improving ROM to improve ability to perform ADLs and IADLs. STG Duration 4 Furniture Associate Goal (LTG) Pt's left shoulder functional ER AROM to improve to T3 or better to show improving ROM to improve ability to perform ADLs and IADLs. LTG Duration 8 Three Impairment Shoulder AROM deficits Short Term Goal (STG) Pt's right shoulder ER AROM to improve to 65 degrees or better and left shoulder ER AROM to improve to 55 degrees or better to show improving ROM to improve ability to perform ADLs and IADLs. STG Duration 4 Chcf Goal (LTG) Pt's left shoulder ER AROM to improve to 65 degrees or better to show improving ROM to improve ability to perform ADLs and IADLs. LTG Duration 8 Two Impairment Shoulder AROM deficits Short Term Goal (STG) Pt's right shoulder ABD AROM to improve to 160 degrees or better and left shoulder ABD AROM to improve to 110 degrees or better to show improving ROM to improve ability to perform ADLs and IADLs. STG Duration 4 Chcf Goal (LTG) Pt's right shoulder ABD AROM to improve to 170 degrees or better and left shoulder ABD AROM to improve to 130 degrees or better to show improving ROM to improve ability to perform ADLs and IADLs. LTG Duration 8 One Impairment Shoulder AROM deficits Short Term Goal (STG) Pt's right shoulder flexion AROM to improve to 130 degrees or better and left shoulder flexion AROM to improve to 110 degrees or better to show improving ROM to improve ability to perform ADLs and IADLs. STG Duration 4 Chcf Goal (LTG) Pt's right shoulder flexion AROM to improve to 150 degrees or better and left shoulder flexion AROM to improve to 130 degrees or better to show improving ROM to improve ability to perform ADLs and IADLs. LTG Duration 8 Progress Towards Goals Progress Towards Goals Progressing Toward Goals Progress Comments The pt is making progress, albeit slowly, due to noncompliance with HEP, and tardiness when attending sessions. Assessment Summary Assessment Regino Arteaga has completed 8 visits of skilled PT to address left shoulder impairments including ROM deficits, pain symptoms and weakness. While the pt has made progress in his ROM, strength and shoulder mechanics, he continues with significant deficits and pain symptoms. He is partially limited by his kyphotic posture, but his LUE measurements are not symmetrical to his RUE. Based on his improvements but remaining deficits, the pt would continue to benefit from skilled PT to return to his PLOF. An extended amount of time was spent educating the pt on his POC, including importance of being compliant with HEP, evidence based interventions and best practices for treating shoulder injuries, and updated POC. The pt is agreeable to continuing with PT and states he will try to be more compliant with HEP in order to improve further. Physical Therapy Plan Frequency and Duration Frequency of Treatment 2x/Week Duration of treatment (weeks) 6 Plan of Care Start Date 08/08/23 Plan of Care End Date 09/19/23 Therapeutic Interventions Therapeutic Interventions Home Exercise Program,Joint Mobilizations,Manual Therapy, Neuromuscular Re-education, Patient/Caregiver Education, Self-Care/Home Management,Soft Tissue Mobilization,Taping, Therapeutic Activities, Therapeutic Exercises Modalities Cold Pack/Ice Massage,Electric Stimulation,Hot Packs Next Visit Focus/Plan Next Note Type Treatment Note Next Visit Plan Continue manual L scap and GH jt, review open book added last tx. POC: Add thoracic and BUE mobility exercises and low level periscapular and RTC strengthening to improve biomechanics and posture.
--- NOTE | 2023-08-17 15:51 | PT.OTN ---
Addendum entered and electronically signed by Adri Helms, PT 08/17/23 17:28: PT direct supervision and direction to PT student. Original Note: Current Diagnoses Pain in right shoulder (08/17/23) Pain in left shoulder (08/17/23) Physical Therapy Treatment Note PT-OP-A Visit Information Start: 06/08/23 08:25 Freq: Status: Active Protocol: Document 08/17/23 09:05 BS (Rec: 08/17/23 11:00 BS [id number]) Out-Patient Physical Therapy Visit Information Visit Information Visit Type Treatment Note Visit Start Time 09:06 Visit Stop Time 09:46 Total Visit Minutes 40 Visit Number 9 Number of PACK PRESS OPERATOR Visits 0 PT-OP-B Current Condition Start: 06/08/23 08:25 Freq: Status: Active Protocol: Document 08/08/23 09:18 AB (Rec: 08/08/23 11:50 AB [id number]) Current Condition History of Current Condition Onset Date Chronic History of Current Condition The pt reports that since COVID, he has been having increasing bilateral shoulder pain (L>R), as well as mobility deficits (L>R). He is able to push through the pain for almost all of his recreational activities, but has trouble getting to sleep and has pain that wakes him up . He reports a 4/10 pain at worst with agg activities ( reaching across his body), 0/ 10 at best. Prior Treatments and Tests Has tried some exercises. Xrays: narrowing space and OA Future Testing and Treatments Planned Will possibly get injections Treatment Goals Patient/Caregiver Goals To return to lifting weights Current Functional Impairments (Reported) Functional Limitations- Recreation/ Participates in hiking, Hobbies kayaking but pushes through the pain. PT-OP-C Subjective Start: 06/08/23 08:25 Freq: Status: Active Protocol: Document 08/17/23 09:05 BS (Rec: 08/17/23 11:00 BS [id number]) OP-PT Subjective Patient Comments Patient Comments Pt put up obey lights yesterday on house and was quite sore from it last night and this morning. Pt said he doesnt have time in his day for HEP at the moment. PT-OP-J Posture/Palpation/Skin Start: 06/08/23 08:25 Freq: Status: Active Protocol: Document 08/08/23 09:18 AB (Rec: 08/08/23 11:50 AB [id number]) Posture Evaluation Position Sitting Evaluation View Lateral T-Spine Posture Increased Kyphosis PT-OP-K Range of Motion Start: 06/08/23 08:25 Freq: Status: Active Protocol: Document 08/08/23 09:18 AB (Rec: 08/08/23 11:50 AB [id number]) Shoulder Goniometric Range of Motion Shoulder Right Active Shoulder ROM WFL Yes Testing Position Sitting Flexion 149 Abduction 158 External Rotation at 0 degrees Abduction 60 Internal Rotation Behind Back (text) T5 Comments Functional ER: T12 Mild pain (1/10) with all motions, begins to compensate with UT for shoulder flexion and ABD Left Active Shoulder ROM WFL No Testing Position Sitting Flexion 119 Abduction 100 External Rotation at 0 degrees Abduction 50 Internal Rotation Behind Back (text) T3 Comments Functional ER: L4 Pain (4-6/10) with shoulder ABD, begins to compensate with UT for shoulder flexion and ABD PT-OP-M Strength Start: 06/08/23 08:25 Freq: Status: Active Protocol: Document 08/08/23 09:18 AB (Rec: 08/08/23 11:50 AB [id number]) Shoulder Strength Shoulder Manual Muscle Testing Right Flexion 5 Normal Extension 5 Normal Abduction (C5) 5 Normal Internal Rotation 4+ Good+ Horizontal Abduction 4+ Good+ Comments Denies pain Left Flexion 5 Normal Extension 5 Normal Abduction (C5) 5 Normal External Rotation 4+ Good+ Internal Rotation 4+ Good+ Comments Mild pain with ABD Elbow/Forearm Strength Elbow and Forearm Manual Muscle Testing Right Flexion (C6) 5 Normal Extension (C7) 5 Normal Left Flexion (C6) 5 Normal Extension (C7) 5 Normal PT-OP-Q Treatments Start: 06/08/23 08:25 Freq: Status: Active Protocol: Document 08/17/23 09:05 BS (Rec: 08/17/23 11:00 BS [id number]) Therapeutic Exercises Standing Exercises Doorway Stretch Standing Exercise Name Pectoralis stretch- low, W Side bilateral Reps/Minutes 2 x 2min hold Cane shldr ABD AAROM Side bilateral Reps/Minutes x10 Comments cues to retract shoulder blades & not engage UT Manual Therapy Treatment Soft Tissue Mobilization chest Comments L pec STM Joint Mobilizations GH Comments 1. L inf GH FM 2. L post GH FM 3. L GH distraction Self-Care/Home Management Treatment Education Other Education 8 min: Educated on HEP management and modifying plan to best fit schedule, such as just doing 2-3 exercises a day and spreading them out over week. Also educated on body mechanics with mvmt. PT-OP-T Assessment and Plan Start: 06/08/23 08:25 Freq: Status: Active Protocol: Document 08/17/23 09:05 BS (Rec: 08/17/23 11:00 BS [id number]) Physical Therapy Assessment Goals Six Impairment Strength Short Term Goal (STG) Pt's gross BUE MMT scores to improve to 5/5 to show improving strength to improve ability to perform ADLs and IADLs. STG Duration 4 Applications Engineering Manager Goal (LTG) Pt to report being able to return to weight lifting with minimal to no pain to show improving strength to return to recreational activities. LTG Duration 8 Five Impairment Shoulder AROM Short Term Goal (STG) Pt's left shoulder functional IR AROM to improve to L1 or better and right shoulder functional IR AROM to improve to T10 or better to show improving ROM to improve ability to perform ADLs and IADLs. STG Duration 4 Applications Engineering Manager Goal (LTG) Pt's left shoulder functional IR AROM to improve to T10 or better and right shoulder functional IR AROM to improve to T8 or better to show improving ROM to improve ability to perform ADLs and IADLs. LTG Duration 8 Four Impairment Shoulder AROM deficits Short Term Goal (STG) Pt's left shoulder functional ER AROM to improve to C7 or better to show improving ROM to improve ability to perform ADLs and IADLs. STG Duration 4 Usp Goal (LTG) Pt's left shoulder functional ER AROM to improve to T3 or better to show improving ROM to improve ability to perform ADLs and IADLs. LTG Duration 8 Three Impairment Shoulder AROM deficits Short Term Goal (STG) Pt's right shoulder ER AROM to improve to 65 degrees or better and left shoulder ER AROM to improve to 55 degrees or better to show improving ROM to improve ability to perform ADLs and IADLs. STG Duration 4 Applications Engineering Manager Goal (LTG) Pt's left shoulder ER AROM to improve to 65 degrees or better to show improving ROM to improve ability to perform ADLs and IADLs. LTG Duration 8 Two Impairment Shoulder AROM deficits Short Term Goal (STG) Pt's right shoulder ABD AROM to improve to 160 degrees or better and left shoulder ABD AROM to improve to 110 degrees or better to show improving ROM to improve ability to perform ADLs and IADLs. STG Duration 4 Usp Goal (LTG) Pt's right shoulder ABD AROM to improve to 170 degrees or better and left shoulder ABD AROM to improve to 130 degrees or better to show improving ROM to improve ability to perform ADLs and IADLs. LTG Duration 8 One Impairment Shoulder AROM deficits Short Term Goal (STG) Pt's right shoulder flexion AROM to improve to 130 degrees or better and left shoulder flexion AROM to improve to 110 degrees or better to show improving ROM to improve ability to perform ADLs and IADLs. STG Duration 4 Applications Engineering Manager Goal (LTG) Pt's right shoulder flexion AROM to improve to 150 degrees or better and left shoulder flexion AROM to improve to 130 degrees or better to show improving ROM to improve ability to perform ADLs and IADLs. LTG Duration 8 Assessment Summary Assessment Pt came in to session today explaining that he has felt like there was a lack of communication btwn his expectations and the PTs expectations during the start of his POC. Today pt was receptive to information and verbally expressed understanding of importance of completing HEP at home, jeanne with coming in 1x/wk. Manual focused on L shoulder as that has most mobility resitrictions. Pt was unable to abd L shoulder both passively and actively past ~ 15 degrees without elevation of scap and shld complex. During manual, pt was able to get good mobility through post glide but inf glide was severely stiff and immobile. Pt reported feeling stretch in ant shld joint with abd. Pt did have some clunking through shoulder with occassions mob as well as active scap retraction in standing. Pt demonstrated good understanding of wall stretch and was educated on not using UT to lift shoulder during bar assisted AAROM for abd. Physical Therapy Plan Frequency and Duration Frequency of Treatment 2x/Week Duration of treatment (weeks) 6 Plan of Care Start Date 08/08/23 Plan of Care End Date 09/19/23 Next Visit Focus/Plan Next Note Type Treatment Note Next Visit Plan Continue manual L scap and GH jt, review open book added last tx. POC: Add thoracic and BUE mobility exercises and low level periscapular and RTC strengthening to improve biomechanics and posture.
--- NOTE | 2023-08-24 12:26 | PT.OTN ---
Addendum entered and electronically signed by Adri Helms, PT 08/24/23 14:20: PT direct supervision and direction to PT student. Original Note: Current Diagnoses Pain in right shoulder (08/24/23) Pain in left shoulder (08/24/23) Physical Therapy Treatment Note PT-OP-A Visit Information Start: 06/08/23 08:25 Freq: Status: Active Protocol: Document 08/24/23 08:21 BS (Rec: 08/24/23 09:08 BS [id number]) Out-Patient Physical Therapy Visit Information Visit Information Visit Type Treatment Note Visit Start Time 08:20 Visit Stop Time 09:05 Total Visit Minutes 45 Visit Number 10 Number of RESOURCE CENTER TEACHER Visits 0 PT-OP-B Current Condition Start: 06/08/23 08:25 Freq: Status: Active Protocol: Document 08/08/23 09:18 AB (Rec: 08/08/23 11:50 AB [id number]) Current Condition History of Current Condition Onset Date Chronic History of Current Condition The pt reports that since COVID, he has been having increasing bilateral shoulder pain (L>R), as well as mobility deficits (L>R). He is able to push through the pain for almost all of his recreational activities, but has trouble getting to sleep and has pain that wakes him up . He reports a 4/10 pain at worst with agg activities ( reaching across his body), 0/ 10 at best. Prior Treatments and Tests Has tried some exercises. Xrays: narrowing space and OA Future Testing and Treatments Planned Will possibly get injections Treatment Goals Patient/Caregiver Goals To return to lifting weights Current Functional Impairments (Reported) Functional Limitations- Recreation/ Participates in hiking, Hobbies kayaking but pushes through the pain. PT-OP-C Subjective Start: 06/08/23 08:25 Freq: Status: Active Protocol: Document 08/24/23 08:21 BS (Rec: 08/24/23 09:08 BS [id number]) OP-PT Subjective Patient Comments Patient Comments Pt said he was able to do some of his HEP since last visit. PT-OP-J Posture/Palpation/Skin Start: 06/08/23 08:25 Freq: Status: Active Protocol: Document 08/08/23 09:18 AB (Rec: 08/08/23 11:50 AB [id number]) Posture Evaluation Position Sitting Evaluation View Lateral T-Spine Posture Increased Kyphosis PT-OP-K Range of Motion Start: 06/08/23 08:25 Freq: Status: Active Protocol: Document 08/08/23 09:18 AB (Rec: 08/08/23 11:50 AB [id number]) Shoulder Goniometric Range of Motion Shoulder Right Active Shoulder ROM WFL Yes Testing Position Sitting Flexion 149 Abduction 158 External Rotation at 0 degrees Abduction 60 Internal Rotation Behind Back (text) T5 Comments Functional ER: T12 Mild pain (1/10) with all motions, begins to compensate with UT for shoulder flexion and ABD Left Active Shoulder ROM WFL No Testing Position Sitting Flexion 119 Abduction 100 External Rotation at 0 degrees Abduction 50 Internal Rotation Behind Back (text) T3 Comments Functional ER: L4 Pain (4-6/10) with shoulder ABD, begins to compensate with UT for shoulder flexion and ABD PT-OP-M Strength Start: 06/08/23 08:25 Freq: Status: Active Protocol: Document 08/08/23 09:18 AB (Rec: 08/08/23 11:50 AB [id number]) Shoulder Strength Shoulder Manual Muscle Testing Right Flexion 5 Normal Extension 5 Normal Abduction (C5) 5 Normal Internal Rotation 4+ Good+ Horizontal Abduction 4+ Good+ Comments Denies pain Left Flexion 5 Normal Extension 5 Normal Abduction (C5) 5 Normal External Rotation 4+ Good+ Internal Rotation 4+ Good+ Comments Mild pain with ABD Elbow/Forearm Strength Elbow and Forearm Manual Muscle Testing Right Flexion (C6) 5 Normal Extension (C7) 5 Normal Left Flexion (C6) 5 Normal Extension (C7) 5 Normal PT-OP-Q Treatments Start: 06/08/23 08:25 Freq: Status: Active Protocol: Document 08/24/23 08:21 BS (Rec: 08/24/23 09:08 BS [id number]) Therapeutic Exercises Supine Exercises Cane shldr flexion AAROM Side bilateral Equipment Used Cane/dowel Reps/Minutes x12 Sidelying Exercises open book Side left Reps/Minutes x10 Comments cues to lead with shoulder blade, pain in ant shoulder Sitting Exercises Rows Sitting Exercise Name bent over rows Equipment Used 8# Reps/Minutes x10 Comments cues for mvmt just thru scap and UE and no twisting through trunk Standing Exercises IR/ER Standing Exercise Name banded IR/ER Equipment Used dowel Reps/Minutes x20 Bicep Standing Exercise Name bicep curls Resistance 12# Shld flex Standing Exercise Name DB front raises Resistance 2# Reps/Minutes x10 Comments cues to raise in painfree range and SLOW down Cane shldr ER AAROM Side bilateral Reps/Minutes x10 Cane shldr ABD AAROM Side bilateral Reps/Minutes x12 Comments cues to retract shoulder blades & not engage UT Self-Care/Home Management Treatment Education Other Education 8 min: education provided on HEP and compliance as well as modifiying current lifting/ weight workouts that pt completes at home and improtance of lower weight and focusing on form instead of relying on momentum for lifts. PT-OP-T Assessment and Plan Start: 06/08/23 08:25 Freq: Status: Active Protocol: Document 08/24/23 08:21 BS (Rec: 08/24/23 09:08 BS [id number]) Physical Therapy Assessment Goals Six Impairment Strength Short Term Goal (STG) Pt's gross BUE MMT scores to improve to 5/5 to show improving strength to improve ability to perform ADLs and IADLs. STG Duration 4 Shelter Goal (LTG) Pt to report being able to return to weight lifting with minimal to no pain to show improving strength to return to recreational activities. LTG Duration 8 Five Impairment Shoulder AROM Short Term Goal (STG) Pt's left shoulder functional IR AROM to improve to L1 or better and right shoulder functional IR AROM to improve to T10 or better to show improving ROM to improve ability to perform ADLs and IADLs. STG Duration 4 Step Down Nurse Goal (LTG) Pt's left shoulder functional IR AROM to improve to T10 or better and right shoulder functional IR AROM to improve to T8 or better to show improving ROM to improve ability to perform ADLs and IADLs. LTG Duration 8 Four Impairment Shoulder AROM deficits Short Term Goal (STG) Pt's left shoulder functional ER AROM to improve to C7 or better to show improving ROM to improve ability to perform ADLs and IADLs. STG Duration 4 Step Down Nurse Goal (LTG) Pt's left shoulder functional ER AROM to improve to T3 or better to show improving ROM to improve ability to perform ADLs and IADLs. LTG Duration 8 Three Impairment Shoulder AROM deficits Short Term Goal (STG) Pt's right shoulder ER AROM to improve to 65 degrees or better and left shoulder ER AROM to improve to 55 degrees or better to show improving ROM to improve ability to perform ADLs and IADLs. STG Duration 4 Step Down Nurse Goal (LTG) Pt's left shoulder ER AROM to improve to 65 degrees or better to show improving ROM to improve ability to perform ADLs and IADLs. LTG Duration 8 Two Impairment Shoulder AROM deficits Short Term Goal (STG) Pt's right shoulder ABD AROM to improve to 160 degrees or better and left shoulder ABD AROM to improve to 110 degrees or better to show improving ROM to improve ability to perform ADLs and IADLs. STG Duration 4 Step Down Nurse Goal (LTG) Pt's right shoulder ABD AROM to improve to 170 degrees or better and left shoulder ABD AROM to improve to 130 degrees or better to show improving ROM to improve ability to perform ADLs and IADLs. LTG Duration 8 One Impairment Shoulder AROM deficits Short Term Goal (STG) Pt's right shoulder flexion AROM to improve to 130 degrees or better and left shoulder flexion AROM to improve to 110 degrees or better to show improving ROM to improve ability to perform ADLs and IADLs. STG Duration 4 Step Down Nurse Goal (LTG) Pt's right shoulder flexion AROM to improve to 150 degrees or better and left shoulder flexion AROM to improve to 130 degrees or better to show improving ROM to improve ability to perform ADLs and IADLs. LTG Duration 8 Assessment Summary Assessment PT session focused on strength training and modifying HEP. Pt required mod-max cueing throughout each exercise but was able to take feedback well and maintain throughout with min cueing after. Pt continues to have limited UE mvmt without shoulder girdle elevation however with cueing and actviation of periscap muscles was able to get slightly more range without excessive elevation. Pt given new HEP with more mantainable amount of exercises to try and promote more compliance. Physical Therapy Plan Frequency and Duration Frequency of Treatment 2x/Week Duration of treatment (weeks) 6 Plan of Care Start Date 08/08/23 Plan of Care End Date 09/19/23 Next Visit Focus/Plan Next Note Type Treatment Note Next Visit Plan Continue manual L scap and GH jt, review open book added last tx. POC: Add thoracic and BUE mobility exercises and low level periscapular and RTC strengthening to improve biomechanics and posture.
--- NOTE | 2023-09-06 17:25 | PT.OTN ---
Addendum entered and electronically signed by Adri Helms, PT 09/06/23 17:48: PT direct supervision and direction to PT student. Original Note: Current Diagnoses Pain in right shoulder (09/06/23) Pain in left shoulder (09/06/23) Physical Therapy Treatment Note PT-OP-A Visit Information Start: 06/08/23 08:25 Freq: Status: Active Protocol: Document 09/06/23 10:42 BS (Rec: 09/06/23 11:21 BS [id number]) Out-Patient Physical Therapy Visit Information Visit Information Visit Type Progress Note Visit Start Time 10:38 Visit Stop Time 11:15 Total Visit Minutes 38 Visit Number 11 Number of CORE DRILL OPERATOR HELPER Visits 0 PT-OP-B Current Condition Start: 06/08/23 08:25 Freq: Status: Active Protocol: Document 08/08/23 09:18 AB (Rec: 08/08/23 11:50 AB [id number]) Current Condition History of Current Condition Onset Date Chronic History of Current Condition The pt reports that since COVID, he has been having increasing bilateral shoulder pain (L>R), as well as mobility deficits (L>R). He is able to push through the pain for almost all of his recreational activities, but has trouble getting to sleep and has pain that wakes him up . He reports a 4/10 pain at worst with agg activities ( reaching across his body), 0/ 10 at best. Prior Treatments and Tests Has tried some exercises. Xrays: narrowing space and OA Future Testing and Treatments Planned Will possibly get injections Treatment Goals Patient/Caregiver Goals To return to lifting weights Current Functional Impairments (Reported) Functional Limitations- Recreation/ Participates in hiking, Hobbies kayaking but pushes through the pain. PT-OP-C Subjective Start: 06/08/23 08:25 Freq: Status: Active Protocol: Document 09/06/23 10:42 BS (Rec: 09/06/23 11:21 BS [id number]) OP-PT Subjective Patient Comments Patient Comments Pt tried some but was not very compliant with HEP overall since last treatment. PT-OP-J Posture/Palpation/Skin Start: 06/08/23 08:25 Freq: Status: Active Protocol: Document 08/08/23 09:18 AB (Rec: 08/08/23 11:50 AB [id number]) Posture Evaluation Position Sitting Evaluation View Lateral T-Spine Posture Increased Kyphosis PT-OP-K Range of Motion Start: 06/08/23 08:25 Freq: Status: Active Protocol: Document 09/06/23 10:42 BS (Rec: 09/06/23 11:21 BS [id number]) Shoulder Goniometric Range of Motion Shoulder Right Active Shoulder ROM WFL Yes Testing Position Sitting Flexion 149 Abduction 138 External Rotation at 0 degrees Abduction 75 Internal Rotation Behind Back (text) T9 Comments Functional ER: T5 Abd in true plane, could go further in scaption plane Left Active Shoulder ROM WFL No Testing Position Sitting Flexion 119 Abduction 90 External Rotation at 0 degrees Abduction 50 Internal Rotation Behind Back (text) L4 Comments Functional ER: T3 PT-OP-M Strength Start: 06/08/23 08:25 Freq: Status: Active Protocol: Document 09/06/23 10:42 BS (Rec: 09/06/23 11:21 BS [id number]) Shoulder Strength Shoulder Manual Muscle Testing Right Flexion 5 Normal Extension 5 Normal Abduction (C5) 5 Normal Internal Rotation 5 Normal Horizontal Abduction 5 Normal Comments Denies pain Left Flexion 5 Normal Extension 5 Normal Abduction (C5) 5 Normal External Rotation 4+ Good+ Internal Rotation 5 Normal PT-OP-Q Treatments Start: 06/08/23 08:25 Freq: Status: Active Protocol: Document 09/06/23 10:42 BS (Rec: 09/06/23 11:21 BS [id number]) Therapeutic Exercises Supine Exercises Cane shldr flexion AAROM Side bilateral Equipment Used Cane/dowel Reps/Minutes x15 Comments cues to move slow and controlled Sidelying Exercises ER Sidelying Exercise Name Weighted ER Side left Equipment Used 1#, 2# Reps/Minutes 2x10 Comments cues for tolerable range Sitting Exercises AROM Sitting Exercise Name Shoulder AROM Side bilateral Comments flex, abd, IR, ER Standing Exercises IR/ER Standing Exercise Name banded IR/ER Side left Resistance orange band Reps/Minutes x15 ea Comments towel under elbow, cues for slow & controlled mvmt Self-Care/Home Management Treatment Education Other Education 13 min: edu on HEP compliance in order to continue progressing in PT and get most out of treatments, edu on reaching out to PCP to discuss meeting with ortho to and learning about alternate treatment options such as additional imaging, injections , or surgery, & edu on how PT con continue to help with ROM utlizing manual therapy and hands on skills. Pt given names of orthos in area. PT-OP-T Assessment and Plan Start: 06/08/23 08:25 Freq: Status: Active Protocol: Document 09/06/23 10:42 BS (Rec: 09/06/23 11:21 BS [id number]) Physical Therapy Assessment Goals Six Impairment Strength Short Term Goal (STG) Pt's gross BUE MMT scores to improve to 5/5 to show improving strength to improve ability to perform ADLs and IADLs. 09/06- progressing, all 5/ expt L ER 4+/5 STG Duration 10/04/23 Crepe Laminator Operator Goal (LTG) Pt to report being able to return to weight lifting with minimal to no pain to show improving strength to return to recreational activities. 09/06- reports catch in shoulder during lifting, 3/10 at worst and will switch lift. LTG Duration 11/01/23 Five Impairment Shoulder AROM Short Term Goal (STG) Pt's left shoulder functional IR AROM to improve to L1 or better and right shoulder functional IR AROM to improve to T10 or better to show improving ROM to improve ability to perform ADLs and IADLs. 09/06- partially met, L IR to L4, R IR to T9 STG Duration 10/04/23 Penitentiary Goal (LTG) Pt's left shoulder functional IR AROM to improve to T10 or better and right shoulder functional IR AROM to improve to T8 or better to show improving ROM to improve ability to perform ADLs and IADLs. LTG Duration 11/01/23 Four Impairment Shoulder AROM deficits Short Term Goal (STG) Pt's left shoulder functional ER AROM to improve to C7 or better to show improving ROM to improve ability to perform ADLs and IADLs. STG Duration achieved Penitentiary Goal (LTG) Pt's left shoulder functional ER AROM to improve to T3 or better to show improving ROM to improve ability to perform ADLs and IADLs. 09/06: L functional ER to T3 LTG Duration achieved 09/06 Three Impairment Shoulder AROM deficits Short Term Goal (STG) Pt's right shoulder ER AROM to improve to 65 degrees or better and left shoulder ER AROM to improve to 55 degrees or better to show improving ROM to improve ability to perform ADLs and IADLs. STG Duration achieved Penitentiary Goal (LTG) Pt's left shoulder ER AROM to improve to 65 degrees or better to show improving ROM to improve ability to perform ADLs and IADLs. 09/06: progressing, 50 deg LTG Duration 11/01/23 Two Impairment Shoulder AROM deficits Short Term Goal (STG) Pt's right shoulder ABD AROM to improve to 160 degrees or better and left shoulder ABD AROM to improve to 110 degrees or better to show improving ROM to improve ability to perform ADLs and IADLs. 09/06- still limited B STG Duration 10/04/23 Penitentiary Goal (LTG) Pt's right shoulder ABD AROM to improve to 170 degrees or better and left shoulder ABD AROM to improve to 130 degrees or better to show improving ROM to improve ability to perform ADLs and IADLs. LTG Duration 11/01/23 One Impairment Shoulder AROM deficits Short Term Goal (STG) Pt's right shoulder flexion AROM to improve to 130 degrees or better and left shoulder flexion AROM to improve to 110 degrees or better to show improving ROM to improve ability to perform ADLs and IADLs. 09/06- partially met, L still limited STG Duration 10/04/23 Crepe Laminator Operator Goal (LTG) Pt's right shoulder flexion AROM to improve to 150 degrees or better and left shoulder flexion AROM to improve to 130 degrees or better to show improving ROM to improve ability to perform ADLs and IADLs. LTG Duration 11/01/23 Assessment Summary Assessment Pt seen today for PT progress note. Pt has had no change in ROM since last prog note, but rotational strength in BUE has improved and pt is limited only in L shld ER. Pt has only had 3 visits since last Prog note which may contribute to lack of progress. Pt has reported noncompliance at last several visits and was edu on importance of completing in order to continue to progress ROM. Pt also was encouraged to reach out to PCP regarding getting appointment with ortho to discuss alternate options for L shoulder. Pt was taken through some of HEP in which he required Min A cueing for tolerable range & set up. Pt will benefit from continued skilled PT to address ROM and strength deficits in order to inc ability to complete ADLs w /o limitation d/t pain. Physical Therapy Plan Frequency and Duration Frequency of Treatment 1x/Week Duration of treatment (weeks) 8 Plan of Care Start Date 09/06/24 Plan of Care End Date 11/01/23 Therapeutic Interventions Therapeutic Interventions Home Exercise Program,Joint Mobilizations,Manual Therapy, Neuromuscular Re-education, Patient/Caregiver Education, Self-Care/Home Management,Soft Tissue Mobilization,Taping, Therapeutic Activities, Therapeutic Exercises Modalities Cold Pack/Ice Massage,Electric Stimulation,Hot Packs Next Visit Focus/Plan Next Note Type Treatment Note Next Visit Plan Continue manual L scap and GH jt, review sidelying ER HEP. POC: Add thoracic and BUE mobility exercises and low level periscapular and RTC strengthening to improve biomechanics and posture.
--- NOTE | 2023-09-06 17:26 | PT.OPPOC ---
Addendum entered and electronically signed by Adri Helms PT 09/06/23 17:47: PT direct supervision and direction to PT student. Original Note: Physical, Occupational & Speech Therapy At [facility] Current Diagnoses Pain in right shoulder (09/06/23) Pain in left shoulder (09/06/23) Visit Care Team Role Provider Type Ant George MD Attending Provider Physician Family Provider Primary Care Provider Referring Provider Specialty: [facility] Practice Address: [address] [place] [address], [facility] Email: [email or web address] Plan Of Care PT-OP-T Assessment and Plan Start: 06/08/23 08:25 Freq: Status: Active Protocol: Document 09/06/23 10:42 BS (Rec: 09/06/23 11:21 BS [id number]) Physical Therapy Assessment Goals Six Impairment Strength Short Term Goal (STG) Pt's gross BUE MMT scores to improve to 5/5 to show improving strength to improve ability to perform ADLs and IADLs. 09/06- progressing, all 5/5 expt L ER 4+/5 STG Duration 10/04/23 Detention Goal (LTG) Pt to report being able to return to weight lifting with minimal to no pain to show improving strength to return to recreational activities. 09/06- reports catch in shoulder during lifting, 3/10 at worst and will switch lift. LTG Duration 11/01/23 Five Impairment Shoulder AROM Short Term Goal (STG) Pt's left shoulder functional IR AROM to improve to L1 or better and right shoulder functional IR AROM to improve to T10 or better to show improving ROM to improve ability to perform ADLs and IADLs. 09/06- partially met, L IR to L4, R IR to T9 STG Duration 10/04/23 Welding Systems And Equipment Repairer Goal (LTG) Pt's left shoulder functional IR AROM to improve to T10 or better and right shoulder functional IR AROM to improve to T8 or better to show improving ROM to improve ability to perform ADLs and IADLs. LTG Duration 11/01/23 Four Impairment Shoulder AROM deficits Short Term Goal (STG) Pt's left shoulder functional ER AROM to improve to C7 or better to show improving ROM to improve ability to perform ADLs and IADLs. STG Duration achieved Welding Systems And Equipment Repairer Goal (LTG) Pt's left shoulder functional ER AROM to improve to T3 or better to show improving ROM to improve ability to perform ADLs and IADLs. 09/06: L functional ER to T3 LTG Duration achieved 09/06 Three Impairment Shoulder AROM deficits Short Term Goal (STG) Pt's right shoulder ER AROM to improve to 65 degrees or better and left shoulder ER AROM to improve to 55 degrees or better to show improving ROM to improve ability to perform ADLs and IADLs. STG Duration achieved Welding Systems And Equipment Repairer Goal (LTG) Pt's left shoulder ER AROM to improve to 65 degrees or better to show improving ROM to improve ability to perform ADLs and IADLs. 09/06: progressing, 50 deg LTG Duration 11/01/23 Two Impairment Shoulder AROM deficits Short Term Goal (STG) Pt's right shoulder ABD AROM to improve to 160 degrees or better and left shoulder ABD AROM to improve to 110 degrees or better to show improving ROM to improve ability to perform ADLs and IADLs. 09/06- still limited B STG Duration 10/04/23 Welding Systems And Equipment Repairer Goal (LTG) Pt's right shoulder ABD AROM to improve to 170 degrees or better and left shoulder ABD AROM to improve to 130 degrees or better to show improving ROM to improve ability to perform ADLs and IADLs. LTG Duration 11/01/23 One Impairment Shoulder AROM deficits Short Term Goal (STG) Pt's right shoulder flexion AROM to improve to 130 degrees or better and left shoulder flexion AROM to improve to 110 degrees or better to show improving ROM to improve ability to perform ADLs and IADLs. 09/06- partially met, L still limited STG Duration 10/04/23 Detention Goal (LTG) Pt's right shoulder flexion AROM to improve to 150 degrees or better and left shoulder flexion AROM to improve to 130 degrees or better to show improving ROM to improve ability to perform ADLs and IADLs. LTG Duration 11/01/23 Assessment Summary Assessment Pt seen today for PT progress note. Pt has had no change in ROM since last prog note, but rotational strength in BUE has improved and pt is limited only in L shld ER. Pt has only had 3 visits since last Prog note which may contribute to lack of progress. Pt has reported noncompliance at last several visits and was edu on importance of completing in order to continue to progress ROM. Pt also was encouraged to reach out to PCP regarding getting appointment with ortho to discuss alternate options for L shoulder. Pt was taken through some of HEP in which he required Min A cueing for tolerable range & set up. Pt will benefit from continued skilled PT to address ROM and strength deficits in order to inc ability to complete ADLs w /o limitation d/t pain. Physical Therapy Plan Frequency and Duration Frequency of Treatment 1x/Week Duration of treatment (weeks) 8 Plan of Care Start Date 09/06/24 Plan of Care End Date 11/01/23 Therapeutic Interventions Therapeutic Interventions Home Exercise Program,Joint Mobilizations,Manual Therapy, Neuromuscular Re-education, Patient/Caregiver Education, Self-Care/Home Management,Soft Tissue Mobilization,Taping, Therapeutic Activities, Therapeutic Exercises Modalities Cold Pack/Ice Massage,Electric Stimulation,Hot Packs Next Visit Focus/Plan Next Note Type Treatment Note Next Visit Plan Continue manual L scap and GH jt, review sidelying ER HEP. POC: Add thoracic and BUE mobility exercises and low level periscapular and RTC strengthening to improve biomechanics and posture. Plan of Care Dates Plan of Care Start Date 09/06/24 Plan of Care End Date 11/01/23 Electronically Signed by: Arpita Lui 09/06/23 [id number] If you are in agreement with this Plan of Care, please return a signed and dated copy. I have reviewed this Plan of Care and certify that the skilled therapy services above are required to meet the patient?s needs. Physician Signature Date Printed Name and Credentials Clinical Instructor Signature Printed Name and Credentials
--- NOTE | 2023-09-14 09:45 | PT.OTN ---
Current Diagnoses Pain in right shoulder (09/14/23) Pain in left shoulder (09/14/23) Physical Therapy Treatment Note PT-OP-A Visit Information Start: 06/08/23 08:25 Freq: Status: Active Protocol: Document 09/14/23 09:06 SP (Rec: 09/14/23 09:49 SP [id number]) Out-Patient Physical Therapy Visit Information Visit Information Visit Type Treatment Note Visit Start Time 09:06 Visit Stop Time 09:45 Total Visit Minutes 41 Visit Number 12 Number of METAL LEAF LAYER Visits 1 Evaluation Information Evaluation Date 06/08/23 PT-OP-B Current Condition Start: 06/08/23 08:25 Freq: Status: Active Protocol: Document 08/08/23 09:18 AB (Rec: 08/08/23 11:50 AB [id number]) Current Condition History of Current Condition Onset Date Chronic History of Current Condition The pt reports that since COVID, he has been having increasing bilateral shoulder pain (L>R), as well as mobility deficits (L>R). He is able to push through the pain for almost all of his recreational activities, but has trouble getting to sleep and has pain that wakes him up . He reports a 4/10 pain at worst with agg activities ( reaching across his body), 0/ 10 at best. Prior Treatments and Tests Has tried some exercises. Xrays: narrowing space and OA Future Testing and Treatments Planned Will possibly get injections Treatment Goals Patient/Caregiver Goals To return to lifting weights Current Functional Impairments (Reported) Functional Limitations- Recreation/ Participates in hiking, Hobbies kayaking but pushes through the pain. PT-OP-C Subjective Start: 06/08/23 08:25 Freq: Status: Active Protocol: Document 09/14/23 09:06 SP (Rec: 09/14/23 09:49 SP [id number]) OP-PT Subjective Patient Comments Patient Comments Pt reports more compliant with HEP since last tx. I am ready to be done with PT for more self activites PT-OP-J Posture/Palpation/Skin Start: 06/08/23 08:25 Freq: Status: Active Protocol: Document 08/08/23 09:18 AB (Rec: 08/08/23 11:50 AB [id number]) Posture Evaluation Position Sitting Evaluation View Lateral T-Spine Posture Increased Kyphosis PT-OP-K Range of Motion Start: 06/08/23 08:25 Freq: Status: Active Protocol: Document 09/06/23 10:42 BS (Rec: 09/06/23 11:21 BS [id number]) Shoulder Goniometric Range of Motion Shoulder Right Active Shoulder ROM WFL Yes Testing Position Sitting Flexion 149 Abduction 138 External Rotation at 0 degrees Abduction 75 Internal Rotation Behind Back (text) T9 Comments Functional ER: T5 Abd in true plane, could go further in scaption plane Left Active Shoulder ROM WFL No Testing Position Sitting Flexion 119 Abduction 90 External Rotation at 0 degrees Abduction 50 Internal Rotation Behind Back (text) L4 Comments Functional ER: T3 PT-OP-M Strength Start: 06/08/23 08:25 Freq: Status: Active Protocol: Document 09/06/23 10:42 BS (Rec: 09/06/23 11:21 BS [id number]) Shoulder Strength Shoulder Manual Muscle Testing Right Flexion 5 Normal Extension 5 Normal Abduction (C5) 5 Normal Internal Rotation 5 Normal Horizontal Abduction 5 Normal Comments Denies pain Left Flexion 5 Normal Extension 5 Normal Abduction (C5) 5 Normal External Rotation 4+ Good+ Internal Rotation 5 Normal PT-OP-Q Treatments Start: 06/08/23 08:25 Freq: Status: Active Protocol: Document 09/14/23 09:06 SP (Rec: 09/14/23 09:49 SP [id number]) Therapeutic Exercises Sidelying Exercises open book Side left Reps/Minutes x10 Comments cues to lead with shoulder blade, pain in ant shoulder Sitting Exercises eccentric FF, scaption Sitting Exercise Name intiated Side left Resistance TB #2 Reps/Minutes x8 reps each Comments cued slow eccentric FF, scaption- tactile cues inferior glide Standing Exercises Cane shldr ER AAROM Side bilateral Reps/Minutes x10 Cane shldr ABD AAROM Side bilateral Reps/Minutes x12 Comments cues to retract shoulder blades & not engage UT Manual Therapy Treatment Soft Tissue Mobilization L Shoulder Body Location L [place], [place], prox lat, SA, teres , infrasp, deloid Mobilization Type Rolling,Strumming,Sustained Pressure Intensity/Depth Moderate Body Position Supine Comments manual and MWM FF, ER, ABD, HABD small range Joint Mobilizations GH Comments 1. L inf GH FM 2. L post GH FM 3. L GH distraction scap thoracic Joint L Direction protraction/retraction Grade II Body Position R SL Comments manual and MWM with open book/ ER/ABD, tactile cues no UT recruitment Self-Care/Home Management Treatment Education Other Education 15 min: Continued ed compliance with HEP with carryover at home for support progression and reaching out to Dr George request for further imaging L shoulder. PT-OP-T Assessment and Plan Start: 06/08/23 08:25 Freq: Status: Active Protocol: Document 09/14/23 09:06 SP (Rec: 09/14/23 09:49 SP [id number]) Physical Therapy Assessment Goals Six Impairment Strength Short Term Goal (STG) Pt's gross BUE MMT scores to improve to 5/5 to show improving strength to improve ability to perform ADLs and IADLs. 09/06- progressing, all 5/5 expt L ER 4+/5 STG Duration 10/04/23 Trust And Estates Attorney Goal (LTG) Pt to report being able to return to weight lifting with minimal to no pain to show improving strength to return to recreational activities. 09/06- reports catch in shoulder during lifting, 3/10 at worst and will switch lift. LTG Duration 11/01/23 Five Impairment Shoulder AROM Short Term Goal (STG) Pt's left shoulder functional IR AROM to improve to L1 or better and right shoulder functional IR AROM to improve to T10 or better to show improving ROM to improve ability to perform ADLs and IADLs. 09/06- partially met, L IR to L4, R IR to T9 STG Duration 10/04/23 Fdc Goal (LTG) Pt's left shoulder functional IR AROM to improve to T10 or better and right shoulder functional IR AROM to improve to T8 or better to show improving ROM to improve ability to perform ADLs and IADLs. LTG Duration 11/01/23 Four Impairment Shoulder AROM deficits Short Term Goal (STG) Pt's left shoulder functional ER AROM to improve to C7 or better to show improving ROM to improve ability to perform ADLs and IADLs. STG Duration achieved Trust And Estates Attorney Goal (LTG) Pt's left shoulder functional ER AROM to improve to T3 or better to show improving ROM to improve ability to perform ADLs and IADLs. 09/06: L functional ER to T3 LTG Duration achieved 09/06 Three Impairment Shoulder AROM deficits Short Term Goal (STG) Pt's right shoulder ER AROM to improve to 65 degrees or better and left shoulder ER AROM to improve to 55 degrees or better to show improving ROM to improve ability to perform ADLs and IADLs. STG Duration achieved Fdc Goal (LTG) Pt's left shoulder ER AROM to improve to 65 degrees or better to show improving ROM to improve ability to perform ADLs and IADLs. 09/06: progressing, 50 deg LTG Duration 11/01/23 Two Impairment Shoulder AROM deficits Short Term Goal (STG) Pt's right shoulder ABD AROM to improve to 160 degrees or better and left shoulder ABD AROM to improve to 110 degrees or better to show improving ROM to improve ability to perform ADLs and IADLs. 09/06- still limited B STG Duration 10/04/23 Trust And Estates Attorney Goal (LTG) Pt's right shoulder ABD AROM to improve to 170 degrees or better and left shoulder ABD AROM to improve to 130 degrees or better to show improving ROM to improve ability to perform ADLs and IADLs. LTG Duration 11/01/23 One Impairment Shoulder AROM deficits Short Term Goal (STG) Pt's right shoulder flexion AROM to improve to 130 degrees or better and left shoulder flexion AROM to improve to 110 degrees or better to show improving ROM to improve ability to perform ADLs and IADLs. 09/06- partially met, L still limited STG Duration 10/04/23 Fdc Goal (LTG) Pt's right shoulder flexion AROM to improve to 150 degrees or better and left shoulder flexion AROM to improve to 130 degrees or better to show improving ROM to improve ability to perform ADLs and IADLs. LTG Duration 11/01/23 Assessment Summary Assessment Pt improved understanding of mechanics of L shld and how compensations affecting his neck and mobility. Pt continues to guard during open chain AAROM with challenges allowing supportive GH inferior glide. Education on suggestion further imaging see if there is something contributing to lack ROM gaining and strength. Pt improved allowance scapulothoracic and GH PROM post education but difficulty AAROM himself without compensations. Pt able to perform open book long arm axis today to continue at home vs hand on head instructed 2 tx ago. Physical Therapy Plan Frequency and Duration Frequency of Treatment 1x/Week Duration of treatment (weeks) 8 Plan of Care Start Date 09/06/24 Plan of Care End Date 11/01/23 Therapeutic Interventions Therapeutic Interventions Home Exercise Program,Joint Mobilizations,Manual Therapy, Neuromuscular Re-education, Patient/Caregiver Education, Self-Care/Home Management,Soft Tissue Mobilization,Taping, Therapeutic Activities, Therapeutic Exercises Modalities Cold Pack/Ice Massage,Electric Stimulation,Hot Packs Next Visit Focus/Plan Next Note Type Treatment Note Next Visit Plan Continue manual L scap and GH jt, review sidelying ER HEP. Check if called Dr George for further imaging. POC: Add thoracic and BUE mobility exercises and low level periscapular and RTC strengthening to improve biomechanics and posture.
--- NOTE | 2023-09-21 17:44 | PT.OTN ---
Current Diagnoses Pain in right shoulder (09/21/23) Pain in left shoulder (09/21/23) Physical Therapy Treatment Note PT-OP-A Visit Information Start: 06/08/23 08:25 Freq: Status: Active Protocol: Document 09/21/23 13:50 [facility] (Rec: 09/21/23 17:44 [facility] [id number]) Out-Patient Physical Therapy Visit Information Visit Information Visit Type Treatment Note Visit Start Time 13:51 Visit Stop Time 14:31 Total Visit Minutes 40 Visit Number 13 Number of OIL PROCESSING TECHNICIAN Visits 0 PT-OP-B Current Condition Start: 06/08/23 08:25 Freq: Status: Active Protocol: Document 08/08/23 09:18 AB (Rec: 08/08/23 11:50 AB [id number]) Current Condition History of Current Condition Onset Date Chronic History of Current Condition The pt reports that since COVID, he has been having increasing bilateral shoulder pain (L>R), as well as mobility deficits (L>R). He is able to push through the pain for almost all of his recreational activities, but has trouble getting to sleep and has pain that wakes him up . He reports a 4/10 pain at worst with agg activities ( reaching across his body), 0/ 10 at best. Prior Treatments and Tests Has tried some exercises. Xrays: narrowing space and OA Future Testing and Treatments Planned Will possibly get injections Treatment Goals Patient/Caregiver Goals To return to lifting weights Current Functional Impairments (Reported) Functional Limitations- Recreation/ Participates in hiking, Hobbies kayaking but pushes through the pain. PT-OP-C Subjective Start: 06/08/23 08:25 Freq: Status: Active Protocol: Document 09/21/23 13:50 [facility] (Rec: 09/21/23 17:44 [facility] [id number]) OP-PT Subjective Patient Comments Patient Comments Pt feels like he is improving and has turned a corner. Has been compliant w/HEP. He will see his MD in Oct and talk to him about further imaging if needed at that point Patient Reported Progress Improving PT-OP-J Posture/Palpation/Skin Start: 06/08/23 08:25 Freq: Status: Active Protocol: Document 08/08/23 09:18 AB (Rec: 08/08/23 11:50 AB [id number]) Posture Evaluation Position Sitting Evaluation View Lateral T-Spine Posture Increased Kyphosis PT-OP-K Range of Motion Start: 06/08/23 08:25 Freq: Status: Active Protocol: Document 09/06/23 10:42 BS (Rec: 09/06/23 11:21 BS [id number]) Shoulder Goniometric Range of Motion Shoulder Right Active Shoulder ROM WFL Yes Testing Position Sitting Flexion 149 Abduction 138 External Rotation at 0 degrees Abduction 75 Internal Rotation Behind Back (text) T9 Comments Functional ER: T5 Abd in true plane, could go further in scaption plane Left Active Shoulder ROM WFL No Testing Position Sitting Flexion 119 Abduction 90 External Rotation at 0 degrees Abduction 50 Internal Rotation Behind Back (text) L4 Comments Functional ER: T3 PT-OP-M Strength Start: 06/08/23 08:25 Freq: Status: Active Protocol: Document 09/06/23 10:42 BS (Rec: 09/06/23 11:21 BS [id number]) Shoulder Strength Shoulder Manual Muscle Testing Right Flexion 5 Normal Extension 5 Normal Abduction (C5) 5 Normal Internal Rotation 5 Normal Horizontal Abduction 5 Normal Comments Denies pain Left Flexion 5 Normal Extension 5 Normal Abduction (C5) 5 Normal External Rotation 4+ Good+ Internal Rotation 5 Normal PT-OP-Q Treatments Start: 06/08/23 08:25 Freq: Status: Active Protocol: Document 09/21/23 13:50 [facility] (Rec: 09/21/23 17:44 [facility] [id number]) Gym Equipment Cable Column (Body Solid) Rows Details scap cues Resistance 6 Reps/Time 15 Lat Pull Down Details slight stretch overhead Resistance 3 Reps/Time 15 Therapeutic Exercises Standing Exercises Shld flex Standing Exercise Name cane AAROM Side left Reps/Minutes 10 Comments mirror for cues Cane shldr ABD AAROM Standing Exercise Name use of mirror Side bilateral Reps/Minutes x12 Comments cues to retract shoulder blades & not engage UT Manual Therapy Treatment Soft Tissue Mobilization L Shoulder Body Location L pec, L lats, teres Mobilization Type Rolling,Strumming,Sustained Pressure Intensity/Depth Moderate Body Position Supine Comments w/overhead motion Joint Mobilizations AC Joint Clavicle ant FM GH Joint L Grade III Body Position Hooklying Comments L post translation and glide, gapping, inf translation and glide FM PT-OP-T Assessment and Plan Start: 06/08/23 08:25 Freq: Status: Active Protocol: Document 09/21/23 13:50 [facility] (Rec: 09/21/23 17:44 [facility] [id number]) Physical Therapy Assessment Goals Six Impairment Strength Short Term Goal (STG) Pt's gross BUE MMT scores to improve to 5/5 to show improving strength to improve ability to perform ADLs and IADLs. 09/06- progressing, all 5/ expt L ER 4+/5 STG Duration 10/04/23 Cooling Machine Operator Goal (LTG) Pt to report being able to return to weight lifting with minimal to no pain to show improving strength to return to recreational activities. 09/06- reports catch in shoulder during lifting, 3/10 at worst and will switch lift. LTG Duration 11/01/23 Five Impairment Shoulder AROM Short Term Goal (STG) Pt's left shoulder functional IR AROM to improve to L1 or better and right shoulder functional IR AROM to improve to T10 or better to show improving ROM to improve ability to perform ADLs and IADLs. 09/06- partially met, L IR to L4, R IR to T9 STG Duration 10/04/23 Cooling Machine Operator Goal (LTG) Pt's left shoulder functional IR AROM to improve to T10 or better and right shoulder functional IR AROM to improve to T8 or better to show improving ROM to improve ability to perform ADLs and IADLs. LTG Duration 11/01/23 Four Impairment Shoulder AROM deficits Short Term Goal (STG) Pt's left shoulder functional ER AROM to improve to C7 or better to show improving ROM to improve ability to perform ADLs and IADLs. STG Duration achieved Group Home Goal (LTG) Pt's left shoulder functional ER AROM to improve to T3 or better to show improving ROM to improve ability to perform ADLs and IADLs. 09/06: L functional ER to T3 LTG Duration achieved 09/06 Three Impairment Shoulder AROM deficits Short Term Goal (STG) Pt's right shoulder ER AROM to improve to 65 degrees or better and left shoulder ER AROM to improve to 55 degrees or better to show improving ROM to improve ability to perform ADLs and IADLs. STG Duration achieved Group Home Goal (LTG) Pt's left shoulder ER AROM to improve to 65 degrees or better to show improving ROM to improve ability to perform ADLs and IADLs. 09/06: progressing, 50 deg LTG Duration 11/01/23 Two Impairment Shoulder AROM deficits Short Term Goal (STG) Pt's right shoulder ABD AROM to improve to 160 degrees or better and left shoulder ABD AROM to improve to 110 degrees or better to show improving ROM to improve ability to perform ADLs and IADLs. 09/06- still limited B STG Duration 10/04/23 Cooling Machine Operator Goal (LTG) Pt's right shoulder ABD AROM to improve to 170 degrees or better and left shoulder ABD AROM to improve to 130 degrees or better to show improving ROM to improve ability to perform ADLs and IADLs. LTG Duration 11/01/23 One Impairment Shoulder AROM deficits Short Term Goal (STG) Pt's right shoulder flexion AROM to improve to 130 degrees or better and left shoulder flexion AROM to improve to 110 degrees or better to show improving ROM to improve ability to perform ADLs and IADLs. 09/06- partially met, L still limited STG Duration 10/04/23 Cooling Machine Operator Goal (LTG) Pt's right shoulder flexion AROM to improve to 150 degrees or better and left shoulder flexion AROM to improve to 130 degrees or better to show improving ROM to improve ability to perform ADLs and IADLs. LTG Duration 11/01/23 Assessment Summary Assessment Pt did well with exercises today requiring less cues but still some cues needed. Pt did improve w/PROM after manual to 125 deg flex. Physical Therapy Plan Frequency and Duration Frequency of Treatment 1x/Week Duration of treatment (weeks) 8 Plan of Care Start Date 09/06/24 Plan of Care End Date 11/01/23 Next Visit Focus/Plan Next Note Type Treatment Note Next Visit Plan Continue manual L scap and GH jt, review sidelying ER HEP. POC: Add thoracic and BUE mobility exercises and low level periscapular and RTC strengthening to improve biomechanics and posture.
--- NOTE | 2023-09-28 12:15 | PT.OTN ---
Current Diagnoses Pain in right shoulder (09/28/23) Pain in left shoulder (09/28/23) Physical Therapy Treatment Note PT-OP-A Visit Information Start: 06/08/23 08:25 Freq: Status: Active Protocol: Document 09/28/23 11:21 [facility] (Rec: 09/28/23 12:14 [facility] [id number]) Out-Patient Physical Therapy Visit Information Visit Information Visit Type Treatment Note Visit Start Time 11:20 Visit Stop Time 12:00 Total Visit Minutes 40 Visit Number 14 Number of GEODETIC COMPUTATOR Visits 0 PT-OP-B Current Condition Start: 06/08/23 08:25 Freq: Status: Active Protocol: Document 08/08/23 09:18 AB (Rec: 08/08/23 11:50 AB [id number]) Current Condition History of Current Condition Onset Date Chronic History of Current Condition The pt reports that since COVID, he has been having increasing bilateral shoulder pain (L>R), as well as mobility deficits (L>R). He is able to push through the pain for almost all of his recreational activities, but has trouble getting to sleep and has pain that wakes him up . He reports a 4/10 pain at worst with agg activities ( reaching across his body), 0/ 10 at best. Prior Treatments and Tests Has tried some exercises. Xrays: narrowing space and OA Future Testing and Treatments Planned Will possibly get injections Treatment Goals Patient/Caregiver Goals To return to lifting weights Current Functional Impairments (Reported) Functional Limitations- Recreation/ Participates in hiking, Hobbies kayaking but pushes through the pain. PT-OP-C Subjective Start: 06/08/23 08:25 Freq: Status: Active Protocol: Document 09/28/23 11:21 [facility] (Rec: 09/28/23 12:14 [facility] [id number]) OP-PT Subjective Patient Comments Patient Comments Pt reports he hardly did anything while he was gone. ROm feels better. He no longer has pain sleeping. He is taking 2 ibuprofen in the AM and in the PM only sometimes about 50% f the time. PT-OP-J Posture/Palpation/Skin Start: 06/08/23 08:25 Freq: Status: Active Protocol: Document 08/08/23 09:18 AB (Rec: 08/08/23 11:50 AB [id number]) Posture Evaluation Position Sitting Evaluation View Lateral T-Spine Posture Increased Kyphosis PT-OP-K Range of Motion Start: 06/08/23 08:25 Freq: Status: Active Protocol: Document 09/06/23 10:42 BS (Rec: 09/06/23 11:21 [id number]) Shoulder Goniometric Range of Motion Shoulder Right Active Shoulder ROM WFL Yes Testing Position Sitting Flexion 149 Abduction 138 External Rotation at 0 degrees Abduction 75 Internal Rotation Behind Back (text) T9 Comments Functional ER: T5 Abd in true plane, could go further in scaption plane Left Active Shoulder ROM WFL No Testing Position Sitting Flexion 119 Abduction 90 External Rotation at 0 degrees Abduction 50 Internal Rotation Behind Back (text) L4 Comments Functional ER: T3 PT-OP-M Strength Start: 06/08/23 08:25 Freq: Status: Active Protocol: Document 09/06/23 10:42 BS (Rec: 09/06/23 11:21 BS [id number]) Shoulder Strength Shoulder Manual Muscle Testing Right Flexion 5 Normal Extension 5 Normal Abduction (C5) 5 Normal Internal Rotation 5 Normal Horizontal Abduction 5 Normal Comments Denies pain Left Flexion 5 Normal Extension 5 Normal Abduction (C5) 5 Normal External Rotation 4+ Good+ Internal Rotation 5 Normal PT-OP-Q Treatments Start: 06/08/23 08:25 Freq: Status: Active Protocol: Document 09/28/23 11:21 [facility] (Rec: 09/28/23 12:14 [facility] [id number]) Manual Therapy Treatment Soft Tissue Mobilization L Shoulder Body Location L pec, L lats, teres Mobilization Type Rolling,Strumming,Sustained Pressure Intensity/Depth Moderate Body Position Supine Comments w/overhead motion Joint Mobilizations AC Joint Clavicle ant FM GH Comments L post translation and glide, gapping, inf translation and glide FM scap thoracic Joint L Direction protraction/retraction Grade II Body Position R SL Comments manual and MWM with open book/ ER/ABD, tactile cues no UT recruitment Self-Care/Home Management Treatment Education Other Education 12 min: review of importance of HEP. edu re: anatomy of shoulder and positive testing indicating further imaging/ ortho opinion may be helpful. Discussed w/pt that ortho could decide further if there was more they could do to improve pt range. Edu on how L side has hard end feel and clunking which is not normal. PT-OP-T Assessment and Plan Start: 06/08/23 08:25 Freq: Status: Active Protocol: Document 09/28/23 11:21 [facility] (Rec: 09/28/23 12:14 [facility] [id number]) Physical Therapy Assessment Goals Six Impairment Strength Short Term Goal (STG) Pt's gross BUE MMT scores to improve to 5/5 to show improving strength to improve ability to perform ADLs and IADLs. 09/06- progressing, all 5/ expt L ER 4+/5 STG Duration 10/04/23 Halfway Goal (LTG) Pt to report being able to return to weight lifting with minimal to no pain to show improving strength to return to recreational activities. 09/06- reports catch in shoulder during lifting, 3/10 at worst and will switch lift. LTG Duration 11/01/23 Five Impairment Shoulder AROM Short Term Goal (STG) Pt's left shoulder functional IR AROM to improve to L1 or better and right shoulder functional IR AROM to improve to T10 or better to show improving ROM to improve ability to perform ADLs and IADLs. 09/06- partially met, L IR to L4, R IR to T9 STG Duration 10/04/23 Halfway Goal (LTG) Pt's left shoulder functional IR AROM to improve to T10 or better and right shoulder functional IR AROM to improve to T8 or better to show improving ROM to improve ability to perform ADLs and IADLs. LTG Duration 11/01/23 Four Impairment Shoulder AROM deficits Short Term Goal (STG) Pt's left shoulder functional ER AROM to improve to C7 or better to show improving ROM to improve ability to perform ADLs and IADLs. STG Duration achieved Halfway Goal (LTG) Pt's left shoulder functional ER AROM to improve to T3 or better to show improving ROM to improve ability to perform ADLs and IADLs. 09/06: L functional ER to T3 LTG Duration achieved 09/06 Three Impairment Shoulder AROM deficits Short Term Goal (STG) Pt's right shoulder ER AROM to improve to 65 degrees or better and left shoulder ER AROM to improve to 55 degrees or better to show improving ROM to improve ability to perform ADLs and IADLs. STG Duration achieved Halfway Goal (LTG) Pt's left shoulder ER AROM to improve to 65 degrees or better to show improving ROM to improve ability to perform ADLs and IADLs. 09/06: progressing, 50 deg LTG Duration 11/01/23 Two Impairment Shoulder AROM deficits Short Term Goal (STG) Pt's right shoulder ABD AROM to improve to 160 degrees or better and left shoulder ABD AROM to improve to 110 degrees or better to show improving ROM to improve ability to perform ADLs and IADLs. 09/06- still limited B STG Duration 10/04/23 Mine Wedge Sawyer Goal (LTG) Pt's right shoulder ABD AROM to improve to 170 degrees or better and left shoulder ABD AROM to improve to 130 degrees or better to show improving ROM to improve ability to perform ADLs and IADLs. LTG Duration 11/01/23 One Impairment Shoulder AROM deficits Short Term Goal (STG) Pt's right shoulder flexion AROM to improve to 130 degrees or better and left shoulder flexion AROM to improve to 110 degrees or better to show improving ROM to improve ability to perform ADLs and IADLs. 09/06- partially met, L still limited STG Duration 10/04/23 Halfway Goal (LTG) Pt's right shoulder flexion AROM to improve to 150 degrees or better and left shoulder flexion AROM to improve to 130 degrees or better to show improving ROM to improve ability to perform ADLs and IADLs. LTG Duration 11/01/23 Assessment Summary Assessment Pt does still have a lot of limit w/AROM of L shoulder. Positive for crank and Obriens test and neg biceps load for labral tests, indicating possible labral pathology. Pt encouraged to talk to primary about options of further imaging and/or ortho referral. He does improve some w/manual to Amy bunn. Physical Therapy Plan Frequency and Duration Frequency of Treatment 1x/Week Duration of treatment (weeks) 8 Plan of Care Start Date 09/06/24 Plan of Care End Date 11/01/23 Next Visit Focus/Plan Next Note Type Treatment Note Next Visit Plan Continue manual L scap and GH jt, review sidelying ER HEP. POC: Add thoracic and BUE mobility exercises and low level periscapular and RTC strengthening to improve biomechanics and posture.
--- NOTE | 2023-09-29 08:37 | PT-OP ANOTE ---
Talked to pt's MD's ANANDA and relayed a couple positive labral tests but one neg. Informed pt has made good progress w/pain, but still has major ROM limits overhead. Noted it may be beneficial for pt to have further imaging and/or see an orthopedic and told her pt was encouraged to ask if he is a good candidate for acupuncture.
--- NOTE | 2023-10-05 12:12 | PT.OTN ---
Current Diagnoses Pain in right shoulder (10/05/23) Pain in left shoulder (10/05/23) Physical Therapy Treatment Note PT-OP-A Visit Information Start: 06/08/23 08:25 Freq: Status: Active Protocol: Document 10/05/23 09:50 [facility] (Rec: 10/05/23 09:55 [facility] [id number]) Out-Patient Physical Therapy Visit Information Visit Information Visit Type Treatment Note Visit Start Time 09:51 Visit Stop Time 10:31 Total Visit Minutes 40 Visit Number 15 Number of EMBROIDERY ASSISTANT Visits 0 PT-OP-B Current Condition Start: 06/08/23 08:25 Freq: Status: Active Protocol: Document 08/08/23 09:18 AB (Rec: 08/08/23 11:50 AB [id number]) Current Condition History of Current Condition Onset Date Chronic History of Current Condition The pt reports that since COVID, he has been having increasing bilateral shoulder pain (L>R), as well as mobility deficits (L>R). He is able to push through the pain for almost all of his recreational activities, but has trouble getting to sleep and has pain that wakes him up . He reports a 4/10 pain at worst with agg activities ( reaching across his body), 0/ 10 at best. Prior Treatments and Tests Has tried some exercises. Xrays: narrowing space and OA Future Testing and Treatments Planned Will possibly get injections Treatment Goals Patient/Caregiver Goals To return to lifting weights Current Functional Impairments (Reported) Functional Limitations- Recreation/ Participates in hiking, Hobbies kayaking but pushes through the pain. PT-OP-C Subjective Start: 06/08/23 08:25 Freq: Status: Active Protocol: Document 10/05/23 09:50 [facility] (Rec: 10/05/23 09:55 [facility] [id number]) OP-PT Subjective Patient Comments Patient Comments Pt reports hyperextendign him self. He was taking down xmas stuff. He got everything down except the rain gutter stuff and had to get on a ladder and reach. He hurthimself w/that then putting the boxes up. He was sore for 3 days after last session in post shoulder. PT-OP-J Posture/Palpation/Skin Start: 06/08/23 08:25 Freq: Status: Active Protocol: Document 08/08/23 09:18 AB (Rec: 08/08/23 11:50 AB [id number]) Posture Evaluation Position Sitting Evaluation View Lateral T-Spine Posture Increased Kyphosis PT-OP-K Range of Motion Start: 06/08/23 08:25 Freq: Status: Active Protocol: Document 10/05/23 09:50 [facility] (Rec: 10/05/23 10:03 [facility] [id number]) Shoulder Goniometric Range of Motion Shoulder Left Active Shoulder ROM WFL No Testing Position Sitting Flexion 116 Extension 69 Abduction 90 External Rotation at 0 degrees Abduction 62 Internal Rotation Behind Back (text) L4 Comments Functional ER: T3 goes into flex w/abd motion PT-OP-M Strength Start: 06/08/23 08:25 Freq: Status: Active Protocol: Document 10/05/23 09:50 [facility] (Rec: 10/05/23 10:03 [facility] [id number]) Shoulder Strength Shoulder Manual Muscle Testing Right Flexion 5 Normal Extension 5 Normal Abduction (C5) 5 Normal Internal Rotation 5 Normal Horizontal Abduction 5 Normal Comments Denies pain Left Flexion 4 Good Extension 5 Normal Abduction (C5) 4 Good External Rotation 4+ Good+ Internal Rotation 5 Normal Horizontal Abduction 3+ Fair+ Horizontal Adduction 4 Good Comments popping and pain w/flex and abd and HAbd PT-OP-Q Treatments Start: 06/08/23 08:25 Freq: Status: Active Protocol: Document 10/05/23 09:50 [facility] (Rec: 10/05/23 10:48 [facility] [id number]) Therapeutic Exercises Supine Exercises Habd Side bilateral Equipment Used L1 Reps/Minutes 3 Serratus punch Side left Equipment Used 1# Reps/Minutes 2x10 Prone Exercises Scapular retraction Prone Exercise Name attempted HAbd Side left Reps/Minutes 6 Comments stopped d/t pain Sidelying Exercises Habd Side left Reps/Minutes 7 Comments stopped d/t pain Sitting Exercises self mob Sitting Exercise Name towel at side and hold elbow w /opp hand Side left Reps/Minutes 20 sec x2 IR Sitting Exercise Name at 45 deg abd Side left Equipment Used L1 Reps/Minutes 15 ER Sitting Exercise Name 1.elbow at 45 deg abd 2. at 90 deg flex Side left Resistance 0#; 2# Reps/Minutes 1.8; 12 2. 2# 10 Standing Exercises Shld flex Standing Exercise Name w/distraction at sink Side bilateral Reps/Minutes [id number] Other Exercises AROM Other Exercise Name shoulder all motions Side left [employer] Other Exercise Name MMT; L shoudler Side left Manual Therapy Treatment Soft Tissue Mobilization L Shoulder Body Location lats and rhomboids Mobilization Type Rolling Intensity/Depth Moderate Comments s/l and seated Joint Mobilizations AC Joint Clavicle ant FM GH Joint L post, distraciton and lat PT-OP-T Assessment and Plan Start: 06/08/23 08:25 Freq: Status: Active Protocol: Document 10/05/23 09:50 [facility] (Rec: 10/05/23 09:55 [facility] [id number]) Physical Therapy Assessment Goals Six Impairment Strength Short Term Goal (STG) Pt's gross BUE MMT scores to improve to 5/5 to show improving strength to improve ability to perform ADLs and IADLs. 09/06- progressing, all 5/5 expt L ER 4+/5 STG Duration 10/04/23 Ceo Goal (LTG) Pt to report being able to return to weight lifting with minimal to no pain to show improving strength to return to recreational activities. 09/06- reports catch in shoulder during lifting, 3/10 at worst and will switch lift. LTG Duration 11/01/23 Five Impairment Shoulder AROM Short Term Goal (STG) Pt's left shoulder functional IR AROM to improve to L1 or better and right shoulder functional IR AROM to improve to T10 or better to show improving ROM to improve ability to perform ADLs and IADLs. 09/06- partially met, L IR to L4, R IR to T9 STG Duration 10/04/23 Ceo Goal (LTG) Pt's left shoulder functional IR AROM to improve to T10 or better and right shoulder functional IR AROM to improve to T8 or better to show improving ROM to improve ability to perform ADLs and IADLs. LTG Duration 11/01/23 Four Impairment Shoulder AROM deficits Short Term Goal (STG) Pt's left shoulder functional ER AROM to improve to C7 or better to show improving ROM to improve ability to perform ADLs and IADLs. STG Duration achieved Ceo Goal (LTG) Pt's left shoulder functional ER AROM to improve to T3 or better to show improving ROM to improve ability to perform ADLs and IADLs. 09/06: L functional ER to T3 LTG Duration achieved 09/06 Three Impairment Shoulder AROM deficits Short Term Goal (STG) Pt's right shoulder ER AROM to improve to 65 degrees or better and left shoulder ER AROM to improve to 55 degrees or better to show improving ROM to improve ability to perform ADLs and IADLs. STG Duration achieved Mcfp Goal (LTG) Pt's left shoulder ER AROM to improve to 65 degrees or better to show improving ROM to improve ability to perform ADLs and IADLs. 09/06: progressing, 50 deg LTG Duration 11/01/23 Two Impairment Shoulder AROM deficits Short Term Goal (STG) Pt's right shoulder ABD AROM to improve to 160 degrees or better and left shoulder ABD AROM to improve to 110 degrees or better to show improving ROM to improve ability to perform ADLs and IADLs. 09/06- still limited B STG Duration 10/04/23 Ceo Goal (LTG) Pt's right shoulder ABD AROM to improve to 170 degrees or better and left shoulder ABD AROM to improve to 130 degrees or better to show improving ROM to improve ability to perform ADLs and IADLs. LTG Duration 11/01/23 One Impairment Shoulder AROM deficits Short Term Goal (STG) Pt's right shoulder flexion AROM to improve to 130 degrees or better and left shoulder flexion AROM to improve to 110 degrees or better to show improving ROM to improve ability to perform ADLs and IADLs. 09/06- partially met, L still limited STG Duration 10/04/23 Ceo Goal (LTG) Pt's right shoulder flexion AROM to improve to 150 degrees or better and left shoulder flexion AROM to improve to 130 degrees or better to show improving ROM to improve ability to perform ADLs and IADLs. LTG Duration 11/01/23 Assessment Summary Assessment Pt cont to be limited in overhead range ,but did show improvement in ER. He does have a lot of clicking and grinding w/ROM that inc since irritating his shoulder this weekend. He does report occ clunking also. He demonstrated and inc in weakness today also w/more pain w/strength testing likely d/t inc pain after working on xmas lights this weekend. He cont to have limited progress w/overhead moblity and would benefit from consideration of further imaging (MRI) and/or referral to orthopedics. Pt encouraged to discuss w/MD if acupuncture would benefit him. Limited tolerance to exercises attempted to work on HAbd today. Physical Therapy Plan Frequency and Duration Frequency of Treatment 1x/Week Duration of treatment (weeks) 8 Plan of Care Start Date 09/06/24 Plan of Care End Date 11/01/23 Next Visit Focus/Plan Next Note Type Treatment Note Next Visit Plan Continue manual L scap and GH jt, review sidelying ER HEP. POC: Add thoracic and BUE mobility exercises and low level periscapular and RTC strengthening to improve biomechanics and posture.
--- NOTE | 2023-10-12 13:03 | PT.OTN ---
Current Diagnoses Pain in right shoulder (10/12/23) Pain in left shoulder (10/12/23) Physical Therapy Treatment Note PT-OP-A Visit Information Start: 06/08/23 08:25 Freq: Status: Active Protocol: Document 10/12/23 10:35 [facility] (Rec: 10/12/23 13:03 [facility] [id number]) Out-Patient Physical Therapy Visit Information Visit Information Visit Type Treatment Note Visit Start Time 10:36 Visit Stop Time 11:16 Total Visit Minutes 40 Visit Number 16 Number of CHECK OUT CASHIER Visits 0 PT-OP-B Current Condition Start: 06/08/23 08:25 Freq: Status: Active Protocol: Document 08/08/23 09:18 AB (Rec: 08/08/23 11:50 AB [id number]) Current Condition History of Current Condition Onset Date Chronic History of Current Condition The pt reports that since COVID, he has been having increasing bilateral shoulder pain (L>R), as well as mobility deficits (L>R). He is able to push through the pain for almost all of his recreational activities, but has trouble getting to sleep and has pain that wakes him up . He reports a 4/10 pain at worst with agg activities ( reaching across his body), 0/ 10 at best. Prior Treatments and Tests Has tried some exercises. Xrays: narrowing space and OA Future Testing and Treatments Planned Will possibly get injections Treatment Goals Patient/Caregiver Goals To return to lifting weights Current Functional Impairments (Reported) Functional Limitations- Recreation/ Participates in hiking, Hobbies kayaking but pushes through the pain. PT-OP-C Subjective Start: 06/08/23 08:25 Freq: Status: Active Protocol: Document 10/12/23 10:35 [facility] (Rec: 10/12/23 13:03 [facility] [id number]) OP-PT Subjective Patient Comments Patient Comments Pt reports he has been doing some heavy lifting (biceps, abd, press) PT-OP-J Posture/Palpation/Skin Start: 06/08/23 08:25 Freq: Status: Active Protocol: Document 08/08/23 09:18 AB (Rec: 08/08/23 11:50 AB [id number]) Posture Evaluation Position Sitting Evaluation View Lateral T-Spine Posture Increased Kyphosis PT-OP-K Range of Motion Start: 06/08/23 08:25 Freq: Status: Active Protocol: Document 10/05/23 09:50 [facility] (Rec: 10/05/23 10:03 [facility] [id number]) Shoulder Goniometric Range of Motion Shoulder Left Active Shoulder ROM WFL No Testing Position Sitting Flexion 116 Extension 69 Abduction 90 External Rotation at 0 degrees Abduction 62 Internal Rotation Behind Back (text) L4 Comments Functional ER: T3 goes into flex w/abd motion PT-OP-M Strength Start: 06/08/23 08:25 Freq: Status: Active Protocol: Document 10/05/23 09:50 [facility] (Rec: 10/05/23 10:03 [facility] [id number]) Shoulder Strength Shoulder Manual Muscle Testing Right Flexion 5 Normal Extension 5 Normal Abduction (C5) 5 Normal Internal Rotation 5 Normal Horizontal Abduction 5 Normal Comments Denies pain Left Flexion 4 Good Extension 5 Normal Abduction (C5) 4 Good External Rotation 4+ Good+ Internal Rotation 5 Normal Horizontal Abduction 3+ Fair+ Horizontal Adduction 4 Good Comments popping and pain w/flex and abd and HAbd PT-OP-Q Treatments Start: 06/08/23 08:25 Freq: Status: Active Protocol: Document 10/12/23 10:35 [facility] (Rec: 10/12/23 13:03 [facility] [id number]) Therapeutic Exercises Sitting Exercises shldr ER Sitting Exercise Name 1. 45 deg abd 2. 45 deg flex Side left Equipment Used 2# Reps/Minutes 20 ea Standing Exercises abd Side left Equipment Used 2# Reps/Minutes 5 min Comments max cues and use of mirror Bicep Standing Exercise Name bicep curls Side bilateral Comments attemptd 23# as pt says doing at home-lots of cues needed for form Shld flex Standing Exercise Name press Side bilateral Equipment Used 10# Comments max cues on form Manual Therapy Treatment Soft Tissue Mobilization chest Comments L pec STM L Shoulder Body Location lats and rhomboids & post delt , supraspinatus & biceps Mobilization Type Rolling Intensity/Depth Moderate Comments supine w/ROM Joint Mobilizations AC Joint Clavicle ant FM GH Joint L post, distraciton and lat PT-OP-T Assessment and Plan Start: 06/08/23 08:25 Freq: Status: Active Protocol: Document 10/12/23 10:35 [facility] (Rec: 10/12/23 13:03 [facility] [id number]) Physical Therapy Assessment Goals Six Impairment Strength Short Term Goal (STG) Pt's gross BUE MMT scores to improve to 5/5 to show improving strength to improve ability to perform ADLs and IADLs. 09/06- progressing, all 5/5 expt L ER 4+/5 STG Duration 10/04/23 Lone Lead Lineman Goal (LTG) Pt to report being able to return to weight lifting with minimal to no pain to show improving strength to return to recreational activities. 09/06- reports catch in shoulder during lifting, 3/10 at worst and will switch lift. LTG Duration 11/01/23 Five Impairment Shoulder AROM Short Term Goal (STG) Pt's left shoulder functional IR AROM to improve to L1 or better and right shoulder functional IR AROM to improve to T10 or better to show improving ROM to improve ability to perform ADLs and IADLs. 09/06- partially met, L IR to L4, R IR to T9 STG Duration 10/04/23 [employer] Lineman Goal (LTG) Pt's left shoulder functional IR AROM to improve to T10 or better and right shoulder functional IR AROM to improve to T8 or better to show improving ROM to improve ability to perform ADLs and IADLs. LTG Duration 11/01/23 Four Impairment Shoulder AROM deficits Short Term Goal (STG) Pt's left shoulder functional ER AROM to improve to C7 or better to show improving ROM to improve ability to perform ADLs and IADLs. STG Duration achieved Fdc Goal (LTG) Pt's left shoulder functional ER AROM to improve to T3 or better to show improving ROM to improve ability to perform ADLs and IADLs. 09/06: L functional ER to T3 LTG Duration achieved 09/06 Three Impairment Shoulder AROM deficits Short Term Goal (STG) Pt's right shoulder ER AROM to improve to 65 degrees or better and left shoulder ER AROM to improve to 55 degrees or better to show improving ROM to improve ability to perform ADLs and IADLs. STG Duration achieved [employer] Lineman Goal (LTG) Pt's left shoulder ER AROM to improve to 65 degrees or better to show improving ROM to improve ability to perform ADLs and IADLs. 09/06: progressing, 50 deg LTG Duration 11/01/23 Two Impairment Shoulder AROM deficits Short Term Goal (STG) Pt's right shoulder ABD AROM to improve to 160 degrees or better and left shoulder ABD AROM to improve to 110 degrees or better to show improving ROM to improve ability to perform ADLs and IADLs. 09/06- still limited B STG Duration 10/04/23 Fdc Goal (LTG) Pt's right shoulder ABD AROM to improve to 170 degrees or better and left shoulder ABD AROM to improve to 130 degrees or better to show improving ROM to improve ability to perform ADLs and IADLs. LTG Duration 11/01/23 One Impairment Shoulder AROM deficits Short Term Goal (STG) Pt's right shoulder flexion AROM to improve to 130 degrees or better and left shoulder flexion AROM to improve to 110 degrees or better to show improving ROM to improve ability to perform ADLs and IADLs. 09/06- partially met, L still limited STG Duration 10/04/23 Fdc Goal (LTG) Pt's right shoulder flexion AROM to improve to 150 degrees or better and left shoulder flexion AROM to improve to 130 degrees or better to show improving ROM to improve ability to perform ADLs and IADLs. LTG Duration 11/01/23 Assessment Summary Assessment Pt required a lot of cues w/ his chosen exercsies to dec wt and focus on using his full range. Still has major limits w/ROM and awaiting follow up w /primary. Physical Therapy Plan Frequency and Duration Frequency of Treatment 1x/Week Duration of treatment (weeks) 8 Plan of Care Start Date 09/06/24 Plan of Care End Date 11/01/23 Next Visit Focus/Plan Next Note Type Treatment Note Next Visit Plan Continue manual L scap and GH jt, review sidelying ER HEP. POC: Add thoracic and BUE mobility exercises and low level periscapular and RTC strengthening to improve biomechanics and posture.
--- NOTE | 2023-10-19 09:04 | PT.OTN ---
Current Diagnoses Pain in right shoulder (10/19/23) Pain in left shoulder (10/19/23) Physical Therapy Treatment Note PT-OP-A Visit Information Start: 06/08/23 08:25 Freq: Status: Active Protocol: Document 10/19/23 08:25 [facility] (Rec: 10/19/23 09:04 [facility] [id number]) Out-Patient Physical Therapy Visit Information Visit Information Visit Type Discharge Summary Visit Start Time 08:21 Visit Stop Time 08:59 Total Visit Minutes 38 Visit Number 17 Number of ACCOUNTS PAYABLE ACCOUNTANT Visits 0 PT-OP-B Current Condition Start: 06/08/23 08:25 Freq: Status: Active Protocol: Document 08/08/23 09:18 AB (Rec: 08/08/23 11:50 AB [id number]) Current Condition History of Current Condition Onset Date Chronic History of Current Condition The pt reports that since COVID, he has been having increasing bilateral shoulder pain (L>R), as well as mobility deficits (L>R). He is able to push through the pain for almost all of his recreational activities, but has trouble getting to sleep and has pain that wakes him up . He reports a 4/10 pain at worst with agg activities ( reaching across his body), 0/ 10 at best. Prior Treatments and Tests Has tried some exercises. Xrays: narrowing space and OA Future Testing and Treatments Planned Will possibly get injections Treatment Goals Patient/Caregiver Goals To return to lifting weights Current Functional Impairments (Reported) Functional Limitations- Recreation/ Participates in hiking, Hobbies kayaking but pushes through the pain. PT-OP-C Subjective Start: 06/08/23 08:25 Freq: Status: Active Protocol: Document 10/19/23 08:25 [facility] (Rec: 10/19/23 09:04 [facility] [id number]) OP-PT Subjective Patient Comments Patient Comments Pt got referral to ortho PT-OP-J Posture/Palpation/Skin Start: 06/08/23 08:25 Freq: Status: Active Protocol: Document 08/08/23 09:18 AB (Rec: 08/08/23 11:50 AB [id number]) Posture Evaluation Position Sitting Evaluation View Lateral T-Spine Posture Increased Kyphosis PT-OP-K Range of Motion Start: 06/08/23 08:25 Freq: Status: Active Protocol: Document 10/19/23 08:25 [facility] (Rec: 10/19/23 09:04 [facility] [id number]) Shoulder Goniometric Range of Motion Shoulder Right Active Shoulder ROM WFL Yes Testing Position Sitting Flexion 144 Abduction 160 External Rotation at 0 degrees Abduction 69 Internal Rotation Behind Back (text) T9 Comments Functional ER: T5 Left Active Shoulder ROM WFL No Testing Position Sitting Flexion 104 Extension 59 Abduction 70 External Rotation at 0 degrees Abduction 51 Internal Rotation Behind Back (text) L5 Comments Functional ER: T3 goes into flex w/abd motion PT-OP-M Strength Start: 06/08/23 08:25 Freq: Status: Active Protocol: Document 10/19/23 08:25 [facility] (Rec: 10/19/23 09:04 [facility] [id number]) Shoulder Strength Shoulder Manual Muscle Testing Right Flexion 5 Normal Extension 5 Normal Abduction (C5) 5 Normal Internal Rotation 5 Normal Horizontal Abduction 5 Normal Comments Denies pain Left Flexion 4 Good Extension 5 Normal Abduction (C5) 3- Fair- External Rotation 4- Good- Internal Rotation 5 Normal Comments pain w/MMT PT-OP-Q Treatments Start: 06/08/23 08:25 Freq: Status: Active Protocol: Document 10/19/23 08:25 [facility] (Rec: 10/19/23 09:04 [facility] [id number]) Therapeutic Exercises Supine Exercises Serratus punch Side left Equipment Used 2# Reps/Minutes x15 Standing Exercises IR/ER Standing Exercise Name banded IR/ER 2. ER at wall w/ L1 Side left Resistance green band Reps/Minutes x15 ea Comments towel under elbow, cues for slow & controlled mvmt Shld flex Standing Exercise Name w/distraction at sink Side bilateral Reps/Minutes [id number] Cross arm stretch Standing Exercise Name Posterior shoulder stretch Side bilateral Reps/Minutes 3 x 30 Comments for posterior shoulder capsule for Goal to increase AROM Doorway Stretch Standing Exercise Name 1.Pec stretch- elbows straight 2. ER at side Side bilateral Reps/Minutes 1 min hold ea IR strap stretch Side left Reps/Minutes 30 sec ; 15 sec Other Exercises AROM Other Exercise Name shoulder all motions as above Side bilateral [employer] Other Exercise Name MMT all planes Side bilateral PT-OP-T Assessment and Plan Start: 06/08/23 08:25 Freq: Status: Active Protocol: Document 10/19/23 08:25 [facility] (Rec: 10/19/23 09:04 [facility] [id number]) Physical Therapy Assessment Goals Six Impairment Strength Short Term Goal (STG) Pt's gross BUE MMT scores to improve to 5/5 to show improving strength to improve ability to perform ADLs and IADLs. 09/06- progressing, all 5/ expt L ER 4+/5 STG Duration still limited and dec recently Nursing Home Goal (LTG) Pt to report being able to return to weight lifting with minimal to no pain to show improving strength to return to recreational activities. 09/06- reports catch in shoulder during lifting, 3/10 at worst and will switch lift. LTG Duration able to wt lift some but not all lifts; not doing all rec activities Five Impairment Shoulder AROM Short Term Goal (STG) Pt's left shoulder functional IR AROM to improve to L1 or better and right shoulder functional IR AROM to improve to T10 or better to show improving ROM to improve ability to perform ADLs and IADLs. 09/06- partially met, L IR to L4, R IR to T9 STG Duration still limited Nursing Home Goal (LTG) Pt's left shoulder functional IR AROM to improve to T10 or better and right shoulder functional IR AROM to improve to T8 or better to show improving ROM to improve ability to perform ADLs and IADLs. LTG Duration still liimsted Four Impairment Shoulder AROM deficits Short Term Goal (STG) Pt's left shoulder functional ER AROM to improve to C7 or better to show improving ROM to improve ability to perform ADLs and IADLs. STG Duration achieved Waste Collection Driver Goal (LTG) Pt's left shoulder functional ER AROM to improve to T3 or better to show improving ROM to improve ability to perform ADLs and IADLs. 09/06: L functional ER to T3 LTG Duration achieved 09/06 Three Impairment Shoulder AROM deficits Short Term Goal (STG) Pt's right shoulder ER AROM to improve to 65 degrees or better and left shoulder ER AROM to improve to 55 degrees or better to show improving ROM to improve ability to perform ADLs and IADLs. STG Duration achieved Waste Collection Driver Goal (LTG) Pt's left shoulder ER AROM to improve to 65 degrees or better to show improving ROM to improve ability to perform ADLs and IADLs. 09/06: progressing, 50 deg LTG Duration improved but limited L still Two Impairment Shoulder AROM deficits Short Term Goal (STG) Pt's right shoulder ABD AROM to improve to 160 degrees or better and left shoulder ABD AROM to improve to 110 degrees or better to show improving ROM to improve ability to perform ADLs and IADLs. 09/06- still limited B STG Duration improved R but L limited Nursing Home Goal (LTG) Pt's right shoulder ABD AROM to improve to 170 degrees or better and left shoulder ABD AROM to improve to 130 degrees or better to show improving ROM to improve ability to perform ADLs and IADLs. LTG Duration improved R but L limited One Impairment Shoulder AROM deficits Short Term Goal (STG) Pt's right shoulder flexion AROM to improve to 130 degrees or better and left shoulder flexion AROM to improve to 110 degrees or better to show improving ROM to improve ability to perform ADLs and IADLs. 09/06- partially met, L still limited STG Duration achieved R but limited still L and dec Nursing Home Goal (LTG) Pt's right shoulder flexion AROM to improve to 150 degrees or better and left shoulder flexion AROM to improve to 130 degrees or better to show improving ROM to improve ability to perform ADLs and IADLs. LTG Duration still limited L>R Assessment Summary Assessment Pt has plateaued at this time and has declined recently w/ ROM and strength testing. At this time, has referral to ortho and has HEP set w/time spent on Edu for this today. DC to HEP d/t plateau in progress. Physical Therapy Plan Discharge Physical Therapy Discharge Reasons Plateau in Progress
== END 2023-10-21 13:10 | disposition home or self-care (01) ==
LOC: PHYS 08:15
PROVIDERS: Family Provider Family Medicine; PCP Family Medicine; Referring Provider Family Medicine; Visit Provider Family Medicine
DX: M25.511 Pain in right shoulder (principal); M25.512 Pain in left shoulder
CPT/HCPCS: 97110; 97140; 97161; 97535